=== PATIENT | male | born 1960 | race Caucasian/White ===

== ENCOUNTER 2024-01-21 18:28 | Inpatient (IN) | payer OTHER, SELFPAY ==
[2024-01-21] VITALS (8 sets, daily range): BP systolic 122–183; BP diastolic 91–121
[2024-01-21 14:43] LABS: % Basophils 0.4 % (0-2); % Eosinophils 0.6 % (0-6); % Immature Granulocytes 0.6 % (0-0.5); % Lymphocytes 6.9 % (20.5-51.1); % Monocytes 16.4 % (1.7-9.3); % Neutrophils 75.1 % (42.2-75.2); Absolute Lymphocytes 0.5 10^3/uL (1.2-3.4); Absolute Monocytes 1.1 10^3/uL (0.1-0.6); Hematocrit 27.7 % (39.0-52.0); Hemoglobin 11.1 g/dL (13.0-18.0); Mean Corp Hgb Conc. 40.1 g/dL (33.0-37.0); Mean Corpuscular Hgb 33.8 pg (27.0-31.0); Mean Corpuscular Volume 84.5 fL (80.0-94.0); Mean Platelet Volume 8.7 fL (7.4-10.4); Nucleated Red Blood Cells % 0 % (-); Platelet Count 129 10^3/uL (130-400); Red Blood Cell Count 3.28 10^6/uL (4.70-6.10); Red Cell Dist. Width 11.8 % (11.5-14.5); White Blood Cell Count 6.7 10^3/uL (4.8-10.8)
[2024-01-21 14:57] LABS: ALT (SGPT) 12 U/L (0-50); AST (SGOT) 18 U/L (17-59); Albumin 4.1 g/dl (3.5-5.0); Alkaline Phosphatase 55 U/L (38-126); Blood Urea Nitrogen 48 mg/dl (9-20); Calcium 8.7 mg/dl (8.4-10.2); Carbon Dioxide 23 mmol/L (22-30); Chloride 79 mmol/L (98-107); Glucose 233 mg/dl (70-99); Potassium 5.1 mmol/L (3.5-5.1); Sodium 113 mmol/L (135-145); Total Bilirubin 2.4 mg/dl (0.2-1.3); Total Protein 6.4 g/dl (6.3-8.2)
[2024-01-21 15:05] LABS: Troponin I < 0.012 ng/ml
--- NOTE | 2024-01-21 15:45 | ED.GENMED ---
History of Present Illness
<Tommy Gonzalez PA-C - Last Filed: 01/21/24 17:19>
General
Chief Complaint: Abnormal Lab Value
Source: patient
Exam Limitations: none
Time Seen by Provider: 01/21/24 15:20
Travel History
Have you had any contact with someone who has COVID-19?: Unable to Answer
Do you have any symptoms of coronavirus? Fever > 100 degrees, chills, cough, shortness of breath, sore throat, loss of taste or smell, muscle aches, or headache?: Unable to Answer
History of Present Illness
History of Present Illness:
63-year-old male presents with generalized fatigue and mild chest pain. He was advised to come here by his transplant team after noting outpatient labs to have a low sodium. He states they have been following his sodium has been low recently. He
denies significant headache. He states he was feeling better postoperatively and was doing well posttransplant. He denies leg swelling. He is an insulin-dependent diabetic. No other complaints at this time
Past History
<Tommy Gonzalez PA-C - Last Filed: 01/21/24 17:19>
Past History
ED Past Medical History: HTN, Hypercholesterolemia and NIDDM (Diet-controlled)
ED Past Surgical History: None
Social History
Tobacco: Non-smoker
Alcohol: Former
Drug: None
Living: with family
Employment: Employed
Family History
Family History: Other (Noncontributory)
Phy Exam
<Tommy Gonzalez PA-C - Last Filed: 01/21/24 17:19>
Physical Exam
Physical Exam:
General: Overall well-appearing male no acute respiratory distress
HEENT: Normocephalic atraumatic neck is supple
Heart: Regular rate and rhythm no murmurs
Lungs: Clear no wheeze or rales
Abdomen: Soft nontender nondistended no guarding or rebound normal bowel sounds
Extremities: No cyanosis or edema
Skin: Warm no rash
Course
<Tommy Gonzalez PA-C - Last Filed: 01/21/24 17:19>
Orders/Labs/Results
Orders:
Orders
01/21/24 13:56
Electrocardiogram (*1) Urgent
Reason for Study: Chest Pain
EKG- Treatment ONCE
01/21/24 14:09
Complete Blood Count/With Diff Urgent
Comprehensive Metabolic Panel Urgent
Serum Osmolality Urgent
Comment: SERUM OSMOLALITY ADDED ON BY FLOOR 3:40PM 01-21-24
Troponin I Urgent
01/21/24 15:41
Add On- LAB Urgent
Tests Added?: serum osmolality
Osmolality, Random Urine Urgent
Date Specimen was Collected: 01/21/24
Time Specimen was Collected: 16:09
Urinalysis Reflex To Culture Urgent
Date Specimen was Collected: 01/21/24
Time Specimen was Collected: 16:09
Urine Sodium Urgent
Date Specimen was Collected: 01/21/24
Time Specimen was Collected: 16:09
01/21/24 16:15
3% Sodium Chloride 100 ml [Sodium Chloride 3%] 100 ml IV ONCE
01/21/24 17:03
3% Sodium Chloride 250 ml [Sodium Chloride 3%] 250 ml IV ONCE
01/21/24 17:05
Urinalysis Stat
01/21/24 17:06
US Renal With Bladder Routine
Comment:
Reason For Exam: TOLU
01/22/24 06:00
Tacrolimus (Prograft - FK506) [S] IN AM
Abnormal Lab Results
01/21/24
14:09
RBC 3.28 L 10^6/uL
(4.70-6.10)
Hgb 11.1 L g/dL
(13.0-18.0)
Hct 27.7 L %
(39.0-52.0)
MCH 33.8 H pg
(27.0-31.0)
MCHC 40.1 H g/dL
(33.0-37.0)
Plt Count 129 L 10^3/uL
(130-400)
Absolute Lymphs (auto) 0.5 L 10^3/uL
(1.2-3.4)
Absolute Monos (auto) 1.1 H 10^3/uL
(0.1-0.6)
Immature Gran % 0.6 H %
(0-0.5)
Lymphocytes % 6.9 L %
(20.5-51.1)
Monocytes % 16.4 H %
(1.7-9.3)
Sodium 113 L* mmol/L
(135-145)
Chloride 79 L mmol/L
(98-107)
BUN 48 H mg/dl
(9-20)
Creatinine 1.7 H mg/dL
(0.7-1.3)
Glucose 233 H mg/dl
(70-99)
Total Bilirubin 2.4 H mg/dl
(0.2-1.3)
01/21/24 14:09
01/21/24 14:09
Vital Signs
Initial and Last Documented VS:
Initial Vital Signs
Temp Pulse Resp BP Pulse Ox
98.2 F 104 20 122/96 100
01/21/24 13:52 01/21/24 13:52 01/21/24 13:52 01/21/24 13:52 01/21/24 13:52
Last Documented Vital Signs
Temp Pulse Resp BP Pulse Ox
98.2 F 86 15 172/92 100
01/21/24 13:52 01/21/24 16:45 01/21/24 16:45 01/21/24 15:23 01/21/24 15:45
<Sy Tejada MD - Last Filed: 01/21/24 16:19>
Orders/Labs/Results
Orders:
Orders
01/21/24 13:56
Electrocardiogram (*1) Urgent
Reason for Study: Chest Pain
EKG- Treatment ONCE
01/21/24 14:09
Complete Blood Count/With Diff Urgent
Comprehensive Metabolic Panel Urgent
Serum Osmolality Urgent
Comment: SERUM OSMOLALITY ADDED ON BY FLOOR 3:40PM 01-21-24
Troponin I Urgent
01/21/24 15:41
Add On- LAB Urgent
Tests Added?: serum osmolality
Osmolality, Random Urine Urgent
Date Specimen was Collected: 01/21/24
Time Specimen was Collected: 16:09
Urinalysis Reflex To Culture Urgent
Date Specimen was Collected: 01/21/24
Time Specimen was Collected: 16:09
Urine Sodium Urgent
Date Specimen was Collected: 01/21/24
Time Specimen was Collected: 16:09
01/21/24 16:15
3% Sodium Chloride 100 ml [Sodium Chloride 3%] 100 ml IV ONCE
01/21/24 17:03
3% Sodium Chloride 250 ml [Sodium Chloride 3%] 250 ml IV ONCE
01/21/24 17:05
Urinalysis Stat
01/21/24 17:06
US Renal With Bladder Routine
Comment:
Reason For Exam: TOLU
01/22/24 06:00
Tacrolimus (Prograft - FK506) [S] IN AM
Abnormal Lab Results
01/21/24
14:09
RBC 3.28 L 10^6/uL
(4.70-6.10)
Hgb 11.1 L g/dL
(13.0-18.0)
Hct 27.7 L %
(39.0-52.0)
MCH 33.8 H pg
(27.0-31.0)
MCHC 40.1 H g/dL
(33.0-37.0)
Plt Count 129 L 10^3/uL
(130-400)
Absolute Lymphs (auto) 0.5 L 10^3/uL
(1.2-3.4)
Absolute Monos (auto) 1.1 H 10^3/uL
(0.1-0.6)
Immature Gran % 0.6 H %
(0-0.5)
Lymphocytes % 6.9 L %
(20.5-51.1)
Monocytes % 16.4 H %
(1.7-9.3)
Sodium 113 L* mmol/L
(135-145)
Chloride 79 L mmol/L
(98-107)
BUN 48 H mg/dl
(9-20)
Creatinine 1.7 H mg/dL
(0.7-1.3)
Glucose 233 H mg/dl
(70-99)
Total Bilirubin 2.4 H mg/dl
(0.2-1.3)
01/21/24 14:09
01/21/24 14:09
Vital Signs
Initial and Last Documented VS:
Initial Vital Signs
Temp Pulse Resp BP Pulse Ox
98.2 F 104 20 122/96 100
01/21/24 13:52 01/21/24 13:52 01/21/24 13:52 01/21/24 13:52 01/21/24 13:52
Last Documented Vital Signs
Temp Pulse Resp BP Pulse Ox
98.2 F 86 15 172/92 100
01/21/24 13:52 01/21/24 16:45 01/21/24 16:45 01/21/24 15:23 01/21/24 15:45
<Tommy Gonzalez PA-C - Last Filed: 01/21/24 17:19>
MDM/Problems Addressed
Differential Diagnosis Includes:
Sent in for outpatient labs demonstrating hyponatremia. Will recheck labs here. Patient also complains of chest pain radiates to the right arm occasionally. This is been ongoing. EKG through triage shows sinus rhythm with a rate of 91 and no
ischemic changes. Will check troponin. Doubt ACS.
Sodium today is 113 this is new for us on our records. Will check medications as a cause. Urine sodium serum osmolality and urine osmolality ordered.
Troponin is undetectable today.
<Tommy Gonzalez PA-C - Last Filed: 01/21/24 17:19>
*Critical Care Note
Total Time (30-74mins, 75-104mins- exclusive of procedures): Not Applicable
<Tommy Gonzalez PA-C - Last Filed: 01/21/24 17:19>
Update Note
Update Note:
Sodium 113. Discussed with emergency room attending with nephrology. Nephrology saw patient and ordered hypertonic saline at 30 mL an hour. I spoke with Catia, the nurse part of his transplant team at [facility]. She states she
spoke with the team and the transplant team is comfortable with patient staying here. Will admit to hospital for acute hyponatremia
ED Attending Note
<Tommy Gonzalez PA-C - Last Filed: 01/21/24 17:19>
-
Portions of this chart may have been created with voice recognition software.� Occasional wrong word or��sound alike� substitutions may have occurred due to the inherent limitations of voice recognition software.
<Sy Tejada MD - Last Filed: 01/21/24 16:19>
ED Attending Note
Patient seen and examined by attending physician: Yes
I performed the substantive portion of visit, reviewed & personally made and approve the management plan that is documented in note by myself or RAGHU.: Yes
ED Attending Note:
Patient has felt somewhat weak and fatigued the last few weeks. He had outpatient labs today that showed a severe low sodium and was sent to the ER for further evaluation. No other specific complaints. No confusion vomiting seizures etc. Patient
has a history of liver transplant. No recent new medications.
On exam patient is nontoxic in no distress. He is warm and dry perfusing well speaking normally fully awake and alert and grossly nonfocal. Good pulses. Regular rate and rhythm.
Sodium 113. Referred to nephrology. I initially had ordered the hypertonic bolus but they asked to hold off until they could evaluate. We are also contacting their liver fitness and wellness coordinator. Patient is trying to get his labs from last week
from his daughter. Clearly warrants admission.
Discharge Plan
Departure
Patient Disposition: Admit
Date of Disposition: 01/21/24
Time of Disposition: 17:18
Admit to: Telemetry
Presentation/result/management discussed w/ accepting MD/DO: Hospitalist
Discharge Problem:
Acute hyponatremia
Prescriptions:
No Action
aspirin 81 mg Tablet,Delayed Release (Dr/Ec)
81 mg PO DAILY
acetaminophen 500 mg Tablet
1,000 mg PO BID
clotrimazole-betamethasone 1-0.05 % cream
1 applic TOPICAL BIDPRN PRN (Reason: itching bilateral leg wounds)
Rx Instructions:
apply to bilateral leg wounds
carvedilol 25 mg tablet
25 mg PO BID
atorvastatin 20 mg tablet
20 mg PO DAILY
sulfamethoxazole-trimethoprim 400-80 mg tablet
1 tab PO DAILY
meloxicam 15 mg tablet
15 mg PO DAILY
tacrolimus 5 mg capsule
5 mg PO BID
Rx Instructions:
with three 1 mg = total 8 mg
melatonin 3 mg Tablet
3 mg PO HS PRN (Reason: insomnia)
tramadol 50 mg tablet
50 mg PO Q12
magnesium oxide 400 mg (241.3 mg magnesium) tablet
400 mg PO BID
ursodiol 300 mg capsule
300 mg PO TID
gabapentin 100 mg capsule
100 mg PO TID
tacrolimus 1 mg capsule
3 mg PO BID
Rx Instructions:
with 5 mg tab = total 8 mg
insulin lispro 100 unit/mL insulin pen
12 unit SC BID@0730,1630
insulin lispro 100 unit/mL insulin pen
14 unit SC DAILY@1130
insulin glargine [Lantus Solostar U-100 Insulin] 100 unit/mL (3 mL) insulin pen
27 unit SC HS
Referrals:
NONE,* [Active] -
Interventions
Interventions:
*Risk Screen - Suicide Last Done: 01/21/24 15:32
*General Assessment Last Done: 01/21/24 15:32
*Neglect/Abuse Screening Last Done: 01/21/24 15:32
ED- Fall Risk Assessment Last Done: 01/21/24 15:31
Discharge Date and Time
Print Language: SOLOM[place] ISLANDER
--- NOTE | 2024-01-21 16:12 | W.CON.NEPH ---
Consultation
-
Date/Time Consultation Requested: 01/21/2024 3:51PM
Date/Time Consultation Performed: 01/21/2024 4:12PM
Requesting Provider: Sy Tejada
Performing Provider: Anny Manning
Reason for Consultation: hyponatremia
Medical History
-
Chief Complaint: hyponatremia
History of Present Illness:
Mr. Foster is a 63YOM with PMH of liver txp at [place] in August 2023, diabetes, chronic L sided abdominal pain, HTN, DLD who presents to the hospital after outpatient labs showed hyponatremia to 113.
Patient states that he had his txp blood work completed this week and was asked to come to the ER because his Na was low. States that over the past few weeks, he has had significant pain and worsening neuropathy of his legs. He endorses taking
tramadol which has been helping with his pain. He also takes tylenol 2000mg BID. He is not sure if he has been taking meloxicam. states that no one has told him he has kidney dysfunction recently.
He endorses recent unsteadiness and confusion over the past few days. States that he has been eating and drinking okay but not as much appetite. Has not gained as much weight as he would like. States that he drinks about 2 bottles of water/day.
Denies nausea, vomitting or diarrhea. In fact, he states that he feels a bit constipated. Denies swelling or SOB.
Reviewing his Na trends, it appears he has always had some level of hyponatremia with Na ranging in the 130s.
Past Medical History
liver cancer s/p txp
HTN
DLD
DM
Past Surgical History: Other (liver txp in 2023)
Social History
Tobacco: Former Smoker (quit 20 years ago)
Alcohol: None
Drug: None
Living: Alone
Family History
Family History: Not Pertinent
Allergies / Home Medications
Allergy/AdvReac Type Severity Reaction Status Date / Time
No Known Allergies Allergy Verified 01/21/24 13:52
�Medication �Instructions �Recorded �Confirmed �Type
acetaminophen 500 mg tablet 1,000 mg PO BID Pain 02/09/23 01/21/24 History
aspirin 81 mg tablet,delayed 81 mg PO DAILY Blood Clot 02/09/23 01/21/24 History
release Prevention/Tx
clotrimazole-betamethasone 1 1 applic topical BIDPRN PRN 02/09/23 01/21/24 History
%-0.05 % topical cream itching bilateral leg wounds
atorvastatin 20 mg tablet 20 mg PO DAILY High Cholesterol 01/21/24 01/21/24 History
carvedilol 25 mg tablet 25 mg PO BID Blood Pressure 01/21/24 01/21/24 History
gabapentin 100 mg capsule 100 mg PO TID Pain 01/21/24 01/21/24 History
insulin glargine 100 unit/mL (3 27 unit SC HS Diabetes 01/21/24 01/21/24 History
mL) subcutaneous pen (Lantus
Solostar U-100 Insulin)
insulin lispro 100 unit/mL 12 unit SC BID@0730,1630 Diabetes 01/21/24 01/21/24 History
subcutaneous pen
insulin lispro 100 unit/mL 14 unit SC DAILY@1130 Diabetes 01/21/24 01/21/24 History
subcutaneous pen
magnesium oxide 400 mg (241.3 mg 400 mg PO BID Electrolyte Repletion 01/21/24 01/21/24 History
magnesium) tablet
melatonin 3 mg tablet 3 mg PO HS PRN insomnia 01/21/24 01/21/24 History
meloxicam 15 mg tablet 15 mg PO DAILY Pain 01/21/24 01/21/24 History
sulfamethoxazole 400 1 tab PO DAILY infection prevention 01/21/24 01/21/24 History
mg-trimethoprim 80 mg tablet
tacrolimus 1 mg capsule, 3 mg PO BID liver transplant 01/21/24 01/21/24 History
immediate-release
tacrolimus 5 mg capsule, 5 mg PO BID liver transplant 01/21/24 01/21/24 History
immediate-release
tramadol 50 mg tablet 50 mg PO Q12 Pain 01/21/24 01/21/24 History
ursodiol 300 mg capsule 300 mg PO TID gallbladder issue 01/21/24 01/21/24 History
Review of Systems
-
History Source: Patient
All other systems: Negative unless noted
Constitutional: Fatigue
Cardiac: Chest Pain (some discomfort in the chest)
Abdomen/GI: Constipated
: Dysuria (intermittent)
Musculoskeletal: Other (leg pain bilaterally)
Neurological: Dizzy and Weakness
Physical Exam
Vital Signs
Vital Signs
Temp Pulse Resp BP Pulse Ox
98.2 F 91 16 172/92 100
01/21/24 13:52 01/21/24 15:30 01/21/24 15:30 01/21/24 15:23 01/21/24 13:52
Lab Results
WBC 6.7 10^3/uL (4.8-10.8) 01/21/24 14:09
RBC 3.28 10^6/uL (4.70-6.10) L 01/21/24 14:09
Hgb 11.1 g/dL (13.0-18.0) L 01/21/24 14:09
Hct 27.7 % (39.0-52.0) L 01/21/24 14:09
Plt Count 129 10^3/uL (130-400) L 01/21/24 14:09
Sodium 113 mmol/L (135-145) L* 01/21/24 14:09
Potassium 5.1 mmol/L (3.5-5.1) 01/21/24 14:09
Chloride 79 mmol/L (98-107) L 01/21/24 14:09
Carbon Dioxide 23 mmol/L (22-30) 01/21/24 14:09
BUN 48 mg/dl (9-20) H 01/21/24 14:09
Creatinine 1.7 mg/dL (0.7-1.3) H 01/21/24 14:09
eGFR 45.30 01/21/24 14:09
Glucose 233 mg/dl (70-99) H 01/21/24 14:09
Calcium 8.7 mg/dl (8.4-10.2) 01/21/24 14:09
Albumin 4.1 g/dl (3.5-5.0) 01/21/24 14:09
Physical Exam
General: AOx3, No Distress and Nontoxic
HEENT: PERRL, EOMI, Anicteric, Conjunctivae Clear, Ear/Nose Intact, Hearing Normal, Oropharynx Clear/Moist, Dentition Intact, Facial Symmetry, Neck Supple, Trachea Midline, No JVD and No Thyromegaly
Respiratory: Clear
Cardiac: S1/S2 and Regular Rate/Rhythm
Breast: N/A
Abdomen: Soft, Nontender and Nondistended
Genito-urinary: No Costovertebral Tender
Musculoskeletal: No Clubbing, No Cyanosis and No Edema
Skin: No Rash
Neuro: Nonfocal/Grossly Intact
Hematologic/Lymphatic: No Cervical Lymphadenopathy
Psych: Mood/afflect pleasant and Insight/judgement good
Data Reviewed
-
Labs: Labs Reviewed by me, Discussed with Physician, Discussed with Nurse and Discussed with Patient
Old Records: Reviewed
Assessment/Plan
-
Assessment:
TOLU
hyponatremia
s/p liver txp in 2023
T2DM
HTN
Plan:
Hyponatremia
- Uosm, Odin pending
- plan for 30cc/hr of HTS
- goal sodium of 119-121 by tomorrow AM
- please trend Na every 6 hours
TOLU
- Cr elevated to 1.7 (baseline normal?)
- please obtain labs from [facility] as this would be very helpful to know his trends
- check UA, tacrolimus level
- kidney ultrasound ordered
- hold off on NSAIDs and other nephrotoxins
[2024-01-21 17:19] LABS: Osmolality Serum 257 mOsm/kg (275-300)
[2024-01-21] MEDS: SODIUM CHLORIDE 3% 250 IV (17:36)
[2024-01-21 18:04] LABS: Urine Albumin Negative (Neg - Trace); Urine Bilirubin Negative (Negative); Urine Character Clear (Clear); Urine Color Yellow; Urine Glucose Negative (Negative); Urine Ketone Trace (Negative); Urine Leukocyte Trace (Negative); Urine Nitrite Negative (Negative); Urine Occult Blood Negative (Negative); Urine Urobilinogen Negative (Neg - 1+)
--- NOTE | 2024-01-21 18:10 | HPS.HSE ---
Family Physician
-
Family Physician: NOT KNOW UNKNOWN - PT DOES
Chief Complaint
-
Low Sodium
History of Present Illness
Patient is a 63 y/o male past medical history of diabetes mellitus, hypertension and liver cancer s/p transplant in Aug 2023 who presents with low sodium. Patient had blood work as outpatient this week which revealed low sodium and he was sent to
the emergency department for evaluation. He reports increasing lower extremity burning sensation and unsteadiness in the legs over the last few weeks. He also reports intermittent confusion. He reports average appetite and denies excessive fluid
intake. He denies nausea. vomiting or diarrhea.
Medical History
Past Medical History
Past Medical History: Reports Cancer (Liver Cancer ), HTN, Hypercholesterolemia and IDDM
Additional Past Medical History:
Liver CA s/p Liver Transplant
Insulin-Dependent Diabetes Mellitus
Essential Hypertension
Hyperlipidemia
Past Surgical History: Reports Other
Additional Past Surgical History:
Liver Transplant - August 2023
Social History
Tobacco: Former Smoker (Quit over 20 years ago)
Alcohol: Former
Living: Alone
Family History
Family History: Not pertinent
Allergies / Home Medications
Allergies reflects when Allergies were last updated in [facility].
Home Medications with original date entered in [facility]
Allergy/Medication List:
Allergies
Allergy/AdvReac Type Severity Reaction Status Date / Time
No Known Allergies Allergy Verified 01/21/24 13:52
Home Medications
acetaminophen 500 mg tablet 1,000 mg PO BID Pain 02/09/23
aspirin 81 mg tablet,delayed release 81 mg PO DAILY Blood Clot Prevention/Tx 02/09/23
clotrimazole-betamethasone 1 %-0.05 % topical cream 1 applic topical BIDPRN PRN itching bilateral leg wounds 02/09/23
atorvastatin 20 mg tablet 20 mg PO DAILY High Cholesterol 01/21/24
carvedilol 25 mg tablet 25 mg PO BID Blood Pressure 01/21/24
gabapentin 100 mg capsule 100 mg PO TID Pain 01/21/24
insulin glargine 100 unit/mL (3 mL) subcutaneous pen (Lantus Solostar U-100 Insulin) 27 unit SC HS Diabetes 01/21/24
insulin lispro 100 unit/mL subcutaneous pen 12 unit SC BID@0730,1630 Diabetes 01/21/24
insulin lispro 100 unit/mL subcutaneous pen 14 unit SC DAILY@1130 Diabetes 01/21/24
magnesium oxide 400 mg (241.3 mg magnesium) tablet 400 mg PO BID Electrolyte Repletion 01/21/24
melatonin 3 mg tablet 3 mg PO HS PRN insomnia 01/21/24
meloxicam 15 mg tablet 15 mg PO DAILY Pain 01/21/24
sulfamethoxazole 400 mg-trimethoprim 80 mg tablet 1 tab PO DAILY infection prevention 01/21/24
tacrolimus 1 mg capsule, immediate-release 3 mg PO BID liver transplant 01/21/24
tacrolimus 5 mg capsule, immediate-release 5 mg PO BID liver transplant 01/21/24
tramadol 50 mg tablet 50 mg PO Q12 Pain 01/21/24
ursodiol 300 mg capsule 300 mg PO TID gallbladder issue 01/21/24
Review of Systems
-
A 12 point ROS was completed and negative except as noted: Yes
Constitutional: Denies Fever or Chills
Respiratory: Denies Cough or Trouble Breathing
Cardiac: Denies Chest Pain or Palpitations
Abdomen/GI: Reports See HPI
Physical Exam
Vital Signs
Vital Signs
Temp Pulse Resp BP Pulse Ox
98.2 F 87 21 183/101 100
01/21/24 13:52 01/21/24 17:15 01/21/24 17:15 01/21/24 17:00 01/21/24 17:15
Physical Exam
General: Comfortable and Conversant
HEENT: Anicteric and Moist mucous membranes
Respiratory: Clear and Non Labored Respirations
Cardiac: S1/S2 and Regular Rhythm
GI: Soft, Non Tender and Other (Midline surgical scar healing well)
Rectal: Deferred by Provider
Musculoskeletal: No Clubbing, No Cyanosis and No Edema
Skin: Warm, Dry and Other (Multiple small bilateral lower ext wounds without evidence of surrounding erythema)
Neuro: Awake, Alert, Oriented and Nonfocal/grossly intact
Psych: Calm
Laboratory Results
-
01/21/24 14:09
01/21/24 14:09
Laboratory Results
Total Bilirubin 2.4 mg/dl (0.2-1.3) H 01/21/24 14:09
AST 18 U/L (17-59) 01/21/24 14:09
ALT 12 U/L (0-50) 01/21/24 14:09
Alkaline Phosphatase 55 U/L (38-126) 01/21/24 14:09
Troponin I < 0.012 ng/ml 01/21/24 14:09
Data Reviewed
-
Lab Data: Labs Reviewed by me
Impression/Plan
-
Hyponatremia
-Appreciate Nephrology consult
-Continue 3% NaCl infusion
-Await urine sodium, and urine osmo
-Continue fluid restriction
-Hold meloxicam
-Recheck sodium later this evening and in AM
Elevated Creatinine, possible TOLU (no labs available since 2022 - attempt to obtain records from [place])
-Check renal ultrasound
-Recheck creatinine in AM
Neuropathy
-Increase gabapentin 200mg TID
Liver CA s/p Liver Transplant in August 2023
-Continue Bactrim for PCP prophylaxis
-Continue Tacrolimus - Check Level
Insulin-Dependent Diabetes Mellitus
-Continue Lantus and Novolog
-Monitor sugars and continue coverage insulin
Essential Hypertension
-Continue Coreg with hold parameters
Hyperlipidemia
-Continue atorvastatin
DVT proph: SC Heparin
Code Status: Full Code
[2024-01-21 18:11] LABS: Urine Bacteria Few (Negative); Urine Red Blood Cell 0-2 /HPF (0-2); Urine White Cell 0-2 /HPF (0-5); Urine Yeast Many (Negative)
[2024-01-21 18:13] LABS: Osmolality Urine 550 mOsm/kg (300-900)
[2024-01-21 18:20] LABS: Urine Sodium 14 mmol/L (30-90)
--- NOTE | 2024-01-21 18:54 | W.PN.UPDATE ---
Addendum entered and electronically signed by Tobi Meyer MD 01/26/24 17:39:
Correction:
Not rectal cancer, hepatic carcinoma
Original Note:
Update Note
Progress Note Update
I saw and examined the patient.
The PATIENT COORDINATOR FRONT DESK's note was reviewed and I agree with the note.
Patient is a 63-year-old male with history of rectal carcinoma s/p liver transplant, history of alcohol use disorder, hyperlipidemia, essential hypertension, insulin-dependent diabetes mellitus sent to ER for found to have new acute hyponatremia on
outpatient labs. Patient have undergone liver transplant in August at [facility] and post transplant patient is getting weekly labs. Today on outpatient lab patient was noted to having low blood sodium of 112 and was recommended to come to ER. ER
physician have discussed with transplant team at [facility] and recommended admission at for further management.
During my visit patient denies of having any major complaints of chest pain/dizziness/shortness of breath/fever/abdominal pain/nausea/vomiting/diarrhea/dysuria. Patient having some generalized weakness and having difficulty with focusing thought
processes. No reported previous history of hyponatremia.
HEENT: No pallor, cyanosis, or jaundice. Throat clear.
NECK: Supple. No JVD.
RESPIRATORY: Lungs clear to auscultation.
CVS: S1, S2 normal. RRR. No murmur, rub or gallop.
ABDOMEN: Soft, non-tender. No distension. BS+/normal.
EXTREMITIES: No peripheral cyanosis or edema.
INTERNATIONAL EDITORIAL PRODUCER: AOx3. No focal deficits.
Acute on chronic hyponatremia
-Baseline sodium close to 130. Today blood from 113
-Reason unclear from clinical history
-Urine sodium 14 with urine osmolality 550
-Suspected euvolemic hyponatremia with ADH excess
-Patient getting 3% NS infusion
-Repeat blood work in night per nephrology recommendation
-Monitor in IMU
Presumed TOLU
-Baseline creatinine unknown. Creatinine 1.7 today
-Tacrolimus level to be checked
-Also on Bactrim as past of posttransplant regimen, to be continued for now
-Meloxicam needs to be held.
S/p liver transplant in September 18
History of liver cancer
-ER Discussed with [facility] transplant center, will contact again if needed
-LFT within normal limit
-Tacrolimus level to be checked
--- NOTE | 2024-01-21 21:07 | PTCARENOTE ---
Patient admitted into room 3349. 3% Sodium chloride infusing via IV pump. Oriented to room and use of call baker. Educated of plan of care. Lower legs with scattered ulcers, pt states he has these for about a month. Tele applied showing NSR. Reports
chronic mid back, neck and feet pain; 06/04. Awaiting pharmacy to verify meds at this time. Admission complete in ER. Call baker within reach.
[2024-01-21 21:11] LABS: Glucose - Point of Care 181 mg/dl (70-99)
[2024-01-21] MEDS: NEURONTIN 200 MG PO (21:43)
[2024-01-21] MEDS: MAGNESIUM OXIDE 500 MG PO (21:43)
[2024-01-21] MEDS: ACTIGALL 300 MG PO (21:44)
[2024-01-21] MEDS: PROGRAF 3 MG PO (21:44)
[2024-01-21] MEDS: COREG 25 MG PO (21:44)
[2024-01-21] MEDS: ULTRAM 50 MG PO (21:45)
[2024-01-21] MEDS: PROGRAF 5 MG PO (21:58)
[2024-01-21] MEDS: LANTUS 0.270000000000000018 UNITS SC (23:04)
[2024-01-21] MEDS: HEPARIN 5000 UNITS SC (23:05)
[2024-01-21] MEDS: TYLENOL 650 MG PO (23:12)
[2024-01-21] MEDS: MELATONIN 3 MG PO (23:13)
[2024-01-22] VITALS (14 sets, daily range): BP systolic 106–176; BP diastolic 68–108; PULSE 88; O2SAT 99
[2024-01-22 00:19] LABS: Blood Urea Nitrogen 45 mg/dl (9-20); Calcium 8.3 mg/dl (8.4-10.2); Carbon Dioxide 24 mmol/L (22-30); Chloride 83 mmol/L (98-107); Glucose 203 mg/dl (70-99); Potassium 4.6 mmol/L (3.5-5.1); Sodium 115 mmol/L (135-145); eGFR 52.64
--- NOTE | 2024-01-22 00:43 | PTCARENOTE ---
Recheck sodium result of 115. 3% Sodium chloride still infusing. SUPERVISING NURSE Filemon made aware. No new orders.
[2024-01-22] MEDS: TYLENOL 650 MG PO ×2 (04:30→21:21)
[2024-01-22 05:19] LABS: Blood Urea Nitrogen 46 mg/dl (9-20); Calcium 8.9 mg/dl (8.4-10.2); Carbon Dioxide 22 mmol/L (22-30); Chloride 85 mmol/L (98-107); Glucose 149 mg/dl (70-99); Magnesium 1.9 mg/dl (1.6-2.3); Potassium 4.7 mmol/L (3.5-5.1); Sodium 118 mmol/L (135-145); eGFR 52.64
[2024-01-22 05:22] LABS: TSH Reflex To Free T4 1.71 uIU/ml (0.47-4.68)
[2024-01-22 07:29] LABS: Glucose - Point of Care 181 mg/dl (70-99)
[2024-01-22 07:51] LABS: Hematocrit 26.7 % (39.0-52.0); Hemoglobin 10.5 g/dL (13.0-18.0); Mean Corp Hgb Conc. 39.3 g/dL (33.0-37.0); Mean Corpuscular Hgb 34.2 pg (27.0-31.0); Mean Platelet Volume 9.1 fL (7.4-10.4); Platelet Count 110 10^3/uL (130-400); Red Blood Cell Count 3.07 10^6/uL (4.70-6.10); Red Cell Dist. Width 11.6 % (11.5-14.5); White Blood Cell Count 5.4 10^3/uL (4.8-10.8)
[2024-01-22] MEDS: NOVOLOG FLEXPEN 12 UNITS SC (07:53)
[2024-01-22] MEDS: NOVOLOG FLEXPEN-MODERATE RESISTANCE 1 UNITS SC (07:53)
[2024-01-22] MEDS: PROGRAF 5 MG PO ×2 (08:36→21:10)
[2024-01-22] MEDS: NEURONTIN 200 MG PO ×3 (08:37→21:10)
[2024-01-22] MEDS: PROGRAF 3 MG PO ×2 (08:37→21:10)
[2024-01-22] MEDS: ROXICODONE 10 MG PO ×3 (08:37→21:08)
[2024-01-22] MEDS: MAGNESIUM OXIDE 500 MG PO ×2 (08:38→21:10)
[2024-01-22] MEDS: ASPIR LOW (ENTERIC COATED) 81 MG PO (08:38)
[2024-01-22] MEDS: LIPITOR 20 MG PO (08:38)
[2024-01-22] MEDS: HEPARIN 5000 UNITS SC ×3 (08:38→23:45)
[2024-01-22] MEDS: ACTIGALL 300 MG PO ×3 (08:38→21:09)
[2024-01-22] MEDS: COREG 25 MG PO ×2 (08:40→21:10)
[2024-01-22] MEDS: BACTRIM 400 MG/80 MG 1 TABLET PO (09:33)
[2024-01-22 09:34] LABS: Glycohemoglobin (HgbA1c) 5.5 % (4.0-5.6)
--- NOTE | 2024-01-22 09:44 | W.PN.NEPH.PH ---
Today's Communication / Plan
-
3%
Assessment/Plan
-
Assessment:
TOLU
hyponatremia
s/p liver txp in 2023
T2DM
HTN
Plan:
follow BMP
3% again today
await FK level
renal US was ok
no NSAIDS
-
-
Date of Service: January 22, 2024
CC / HPI / ROS
-
Chief Complaint:
hyponatremia
TOLU
History of Present Illness:
Na up to 118 with 3%
BP stable
TOLU/Cr down to 1.5
Review of Systems:
no CP/SOB
Labs
-
Labs:
WBC 5.4 10^3/uL (4.8-10.8) 01/22/24 04:13
RBC 3.07 10^6/uL (4.70-6.10) L 01/22/24 04:13
Hgb 10.5 g/dL (13.0-18.0) L 01/22/24 04:13
Hct 26.7 % (39.0-52.0) L 01/22/24 04:13
Plt Count 110 10^3/uL (130-400) L 01/22/24 04:13
Sodium 118 mmol/L (135-145) L* 01/22/24 04:13
Potassium 4.7 mmol/L (3.5-5.1) 01/22/24 04:13
Chloride 85 mmol/L (98-107) L 01/22/24 04:13
Carbon Dioxide 22 mmol/L (22-30) 01/22/24 04:13
BUN 46 mg/dl (9-20) H 01/22/24 04:13
Creatinine 1.5 mg/dL (0.7-1.3) H 01/22/24 04:13
eGFR 52.64 01/22/24 04:13
Glucose 149 mg/dl (70-99) H 01/22/24 04:13
Calcium 8.9 mg/dl (8.4-10.2) 01/22/24 04:13
Albumin 4.1 g/dl (3.5-5.0) 01/21/24 14:09
Physical Exam
-
Vital Signs:
Vital Signs
Temp Pulse Resp BP Pulse Ox
97.4 F 91 16 136/88 99
01/22/24 07:35 01/22/24 08:40 01/22/24 06:30 01/22/24 08:40 01/22/24 06:30
Cardiovascular:: Regular rate and rhythm
Respiratory:: Bilateral: Coarse
Lung Excursion:: Normal
Abdomen:: Nontender and Soft
Bowel Sounds:: Normal
Extremity Edema:: None: Bilateral:
[2024-01-22] MEDS: SODIUM CHLORIDE 3% 250 IV (10:29)
--- NOTE | 2024-01-22 10:42 | WOUNDNOTE ---
LLE (ANTERIOR LATERAL)
--- NOTE | 2024-01-22 10:43 | WOUNDNOTE ---
RLE (ANTERIOR LATERAL)
--- NOTE | 2024-01-22 10:43 | WOUNDNOTE ---
[facility] RN note: Patient admitted with hyponatremia. Patient lives at home.
See H&P for complete history.
PMH: Liver cancer, s/p liver transplant 08/2023, DM, former smoker.
Wound Location and type/assessment: Patient admitted with: multiple dermal ulcers le's and L dorsal foot d/t patient scratching he states is r/t his neuropathy. Wounds pink and scabbed with small serous drainage. Minimal local erythema. +Pedal
pulses heard via portable Doppler. Toes warm. No LE edema.
Appetite: good for breakfast.
Pressure redistribution devices in place: Centrella Cumulux air bed. He is mobile.
Plan: Le and L foot dressings changed. Instructed patient patient local care.
Will confirm orders with hospitalist and discussed with DEVAN Pires.
Care plan to be updated and will follow as needed.
Note to case management requested for discharge: VN if goes home when discharged if qualifies and agrees.
Recommend follow up at wound care center upon discharge.
--- NOTE | 2024-01-22 10:56 | WOUNDNOTE ---
[facility] RN note: Patient admitted with hyponatremia. Patient lives at home alone.
See H&P for complete history.
PMH: Liver cancer, s/p liver transplant 08/2023, DM, former smoker, HTN.
Wound Location and type/assessment: Patient admitted with: multiple dermal ulcers le's and L dorsal foot d/t patient scratching he states is r/t his neuropathy. Wounds pink and scabbed with small serous drainage. Minimal local erythema. +Pedal
pulses heard via portable Doppler. Toes warm. No LE edema.
Appetite: good for breakfast.
Pressure redistribution devices in place: Call Britannia air bed. Air chair cushion. He is mobile however unsteady.
Plan: Le and L foot dressings changed with help from [facility] RN student Goldie. Instructed patient patient local care and hand hygiene with wound care. Instructed patient pressure injury prevention measures. Suggested he request VN if goes home when
discharged.
Will confirm orders with hospitalist and discussed with DEVAN Pires.
Care plan to be updated and will follow as needed.
Note to case management requested for discharge: VN if goes home when discharged if qualifies and agrees.
Recommend follow up at wound care center upon discharge.
--- NOTE | 2024-01-22 11:03 | PTCARENOTE ---
Rec'd pt this AM. RN found pt sitting on couch by window with all monitors removed. Pt is unsteady on feet and with ambulation. Pt was assisted back to bedside chair, all monitors replaced. Pt educated on fall risk and current limitations with his
condition. He verbalized that he would use call baker in the future for assistance. 30 min later pt found in bed, he had ambulated on his own from chair to bed. RN educated pt again and placed bed alarm on. Pt aware. Currently in bedside chair with
chair alarm in place. Pt walked with PT and complained of feeling dizzy. He is also very tremulous.
--- NOTE | 2024-01-22 12:38 | PTCARENOTE ---
Assisted pt back to bed, updated daughter via telephone. 3% NS infusing. reports improved pain control.
[2024-01-22] MEDS: NOVOLOG FLEXPEN-MODERATE RESISTANCE SC ×2 (13:08→17:40)
[2024-01-22 13:18] LABS: Glucose - Point of Care 144 mg/dl (70-99)
--- NOTE | 2024-01-22 13:52 | W.PN.HOSP.TC ---
Today's Communication/Plan
-
repeat 3% NS
increase pain medication
f/u na level
obtain labs from [facility]
Assessment / Plan
Assessment / Plan
Acute on chronic hyponatremia
-Baseline sodium close to 130. ER sodium of 113
-Reason unclear from clinical history
-Urine sodium 14 with urine osmolality 550
-Suspected euvolemic hyponatremia with ADH excess
-Patient getting 3% NS infusion yesterday and sodium up to 118 today
-Nephrology followed up and patient getting a repeat 3% NS infusion today
Presumed TOLU
-Baseline creatinine unknown. Creatinine 1.7 today
-Tacrolimus level to be checked
-Also on Bactrim as past of posttransplant regimen, to be continued for now
-Meloxicam needs to be held.
S/p liver transplant in September 18
History of liver cancer
-ER Discussed with [facility] transplant center, will contact again if needed
-LFT within normal limit
-Tacrolimus level to be checked
Peripheral neuropathy
-Suspected diabetes versus tacrolimus use related
-Increase gabapentin 200mg TID
Insulin-Dependent Diabetes Mellitus
-Continue Lantus and Novolog
-Monitor sugars and continue coverage insulin
Essential Hypertension
-Continue Coreg with hold parameters
Hyperlipidemia
-Continue atorvastatin
DVT proph: SC Heparin
Code Status: Full Code
Patient reported access to [facility] chart although does not remember log in credentials. Official records request pending from [facility],.
Anticipated Discharge: > 48 hours
Subjective/Interval History
-
Date of Service: January 22, 2024
No acute issues overnight
Continues to feel dizzy
Denies nausea or vomiting
Objective Data
-
Labs:
Laboratory Results
01/22/24 01/22/24
04:13 15:00
WBC 5.4
Hgb 10.5 L
Hct 26.7 L
Plt Count 110 L
Sodium 118 L* Pending
Potassium 4.7 Pending
Chloride 85 L Pending
Carbon Dioxide 22 Pending
BUN 46 H Pending
Creatinine 1.5 H Pending
Glucose 149 H Pending
Calcium 8.9 Pending
Vital Signs:
Vital Signs
Temp Pulse Resp BP Pulse Ox
97.9 F 83 16 110/68 98
01/22/24 11:19 01/22/24 12:00 01/22/24 12:00 01/22/24 12:00 01/22/24 12:00
I&O
01/21/24 01/22/24 01/23/24
06:59 06:59 06:59
Intake Total 480 / 480
Balance 480 / 480
Review of Systems
-
Respiratory: Reports No Symptoms
Cardiac: Reports No Symptoms
Abdomen/GI: Reports No Symptoms
Physical Exam
-
General: Negative Cachectic
HEENT: Negative Oxygen
Respiratory: Clear to Auscultation and Non Labored Respirations; Negative Accessory Resp Muscle Use
Cardiac: Regular Rhythm and S1/S2
GI: Soft, Nontender, Nondistended and Normal Bowel Sounds
Skin: Warm and Dry
Neuro: Awake, Alert, Oriented, AO x 3 and Nonfocal/Grossly Intact
Psych: Calm and Intact Judgement/Insight
--- NOTE | 2024-01-22 14:12 | PTCARENOTE ---
Pt again attempted to get OOB without assistance. Bed alarm in place. RN assisted pt to bathroom and back to bed safely.
[2024-01-22] MEDS: NOVOLOG FLEXPEN 14 UNITS SC (14:28)
[2024-01-22 16:07] LABS: Blood Urea Nitrogen 45 mg/dl (9-20); Calcium 8.9 mg/dl (8.4-10.2); Carbon Dioxide 22 mmol/L (22-30); Chloride 89 mmol/L (98-107); Estimated Creatinine Clearance 59 ml/min; Glucose 132 mg/dl (70-99); Sodium 120 mmol/L (135-145); eGFR 57.18
[2024-01-22] MEDS: MIRALAX 17 GRAMS PO (16:27)
--- NOTE | 2024-01-22 16:36 | CM ---
Patient with Hx liver transplant, IDDM with Dx hyponatremia, TOLU. Seen by wound care nurse; multiple dermal ulcers LE's and L dorsal foot. PT recommends home PT vs outpatient. OT recommends outpatient therapy.
Spoke with patient (Juan) who resides alone in a one story house with 2 TERRA.
Pt reports he is independent with mobility and ADLs.
He has been managing his own wound care at home and wears sock & slipper on left foot.
DME - home made SPC, [employer] Glucose Monitor
VN - prior [facility]
Rehab- prior [facility]
PCP - Sy Lu
[facility] [place]
Offered VN for SN for wound care and PT/OT- patient agrees to VN and chooses VN.
Referral to [facility]; CM will need to follow up tomorrow and see if patient is accepted.
[facility]
--- NOTE | 2024-01-22 17:00 | VNURNOTE ---
[facility] referral completed in [facility] after review of chart, pending acceptance of insurance.
[2024-01-22 17:40] LABS: Glucose - Point of Care 81 mg/dl (70-99)
[2024-01-22] MEDS: NOVOLOG FLEXPEN SC (17:40)
--- NOTE | 2024-01-22 17:40 | PTCARENOTE ---
Pt reported that his sugar on his CGM 62, felt symptomatic. Blood sugar on Accucheck 81. Pt did not want any insulin prior to dinner
[2024-01-22] MEDS: MELATONIN 3 MG PO (21:08)
[2024-01-22 21:13] LABS: Glucose - Point of Care 170 mg/dl (70-99)
[2024-01-22] MEDS: LANTUS 0.270000000000000018 UNITS SC (21:16)
[2024-01-23] VITALS (7 sets, daily range): BP systolic 99–163; BP diastolic 55–92; BMI 22.8
[2024-01-23] MEDS: ROXICODONE 10 MG PO ×4 (01:42→16:35)
[2024-01-23] MEDS: TYLENOL 650 MG PO ×2 (01:42→17:45)
[2024-01-23 05:31] LABS: Blood Urea Nitrogen 40 mg/dl (9-20); Calcium 8.7 mg/dl (8.4-10.2); Carbon Dioxide 26 mmol/L (22-30); Chloride 90 mmol/L (98-107); Estimated Creatinine Clearance 64 ml/min; Glucose 140 mg/dl (70-99); Potassium 5.2 mmol/L (3.5-5.1); Sodium 122 mmol/L (135-145); eGFR > 60.00
--- NOTE | 2024-01-23 06:28 | PTCARENOTE ---
Patient picking at leg dressings, removed all dressings. Pt stated 'they were itching'. Patient lacks insight on overall situation. Pt attempts to get OOB without pressing the call baker for assistance. Educated multiple times on fall safety, pt
verbalized understanding but needs reinforcement. Gait is still unsteady, tremors present. Sodium has been improving slowly. Pain managed with PRN Tylenol and Oxycodone 10mg; continues to be painful mostly to his back. Repositioning helps with this.
Bed alarm set for safety. Call baker and tray table left within reach.
[2024-01-23] MEDS: NOVOLOG FLEXPEN 12 UNITS SC ×2 (07:13→17:42)
[2024-01-23] MEDS: NOVOLOG FLEXPEN-MODERATE RESISTANCE 13 UNITS SC (07:13)
[2024-01-23 07:28] LABS: Glucose - Point of Care 162 mg/dl (70-99)
[2024-01-23] MEDS: MAGNESIUM OXIDE 500 MG PO ×2 (08:29→20:53)
[2024-01-23] MEDS: ASPIR LOW (ENTERIC COATED) 81 MG PO (08:29)
[2024-01-23] MEDS: PROGRAF 3 MG PO ×2 (08:29→20:53)
[2024-01-23] MEDS: BACTRIM 400 MG/80 MG 1 TABLET PO (08:30)
[2024-01-23] MEDS: COREG 25 MG PO ×2 (08:31→21:02)
[2024-01-23] MEDS: ACTIGALL 300 MG PO ×3 (08:31→21:02)
[2024-01-23] MEDS: PROGRAF 5 MG PO ×2 (08:31→20:53)
[2024-01-23] MEDS: NEURONTIN 200 MG PO ×3 (08:32→21:02)
[2024-01-23] MEDS: LIPITOR 20 MG PO (08:32)
[2024-01-23] MEDS: HEPARIN 5000 UNITS SC ×2 (08:37→15:52)
--- NOTE | 2024-01-23 09:12 | W.PN.NEPH.PH ---
Today's Communication / Plan
-
3% with lasix
Assessment/Plan
-
Assessment:
TOLU
hyponatremia
s/p liver txp in 2023
T2DM
HTN
Plan:
follow BMP
3% again today
lasix today too
await FK level
-
-
Date of Service: January 23, 2024
CC / HPI / ROS
-
Chief Complaint:
hyponatremia
TOLU
History of Present Illness:
Na up to 122 with 3%
BP stable
TOLU/Cr down to 1.3
K up to 5.2
Review of Systems:
no CP/SOB
Labs
-
Labs:
WBC 5.4 10^3/uL (4.8-10.8) 01/22/24 04:13
RBC 3.07 10^6/uL (4.70-6.10) L 01/22/24 04:13
Hgb 10.5 g/dL (13.0-18.0) L 01/22/24 04:13
Hct 26.7 % (39.0-52.0) L 01/22/24 04:13
Plt Count 110 10^3/uL (130-400) L 01/22/24 04:13
eGFR > 60.00 01/23/24 04:34
Albumin 4.1 g/dl (3.5-5.0) 01/21/24 14:09
Physical Exam
-
Vital Signs:
Vital Signs
Temp Pulse Resp BP Pulse Ox
97.7 F 87 15 135/69 98
01/23/24 07:36 01/23/24 08:31 01/23/24 06:00 01/23/24 08:31 01/23/24 04:30
Cardiovascular:: Regular rate and rhythm
Respiratory:: Bilateral: Coarse
Lung Excursion:: Normal
Abdomen:: Nontender and Soft
Bowel Sounds:: Normal
Extremity Edema:: None: Bilateral:
[2024-01-23] MEDS: LASIX 20 MG IV (09:56)
[2024-01-23] MEDS: SODIUM CHLORIDE 3% 250 IV (09:56)
--- NOTE | 2024-01-23 10:33 | PTCARENOTE ---
Pt AAOx3 , showered and down grade to medsurg. 3% sodium running as ordered .Pt desiws he will be moved as soon as there is a bed
[2024-01-23] MEDS: NOVOLOG FLEXPEN-MODERATE RESISTANCE SC (11:56)
[2024-01-23] MEDS: NOVOLOG FLEXPEN 14 UNITS SC (11:57)
[2024-01-23 12:07] LABS: Glucose - Point of Care 117 mg/dl (70-99)
--- NOTE | 2024-01-23 14:06 | PTCARENOTE ---
wonwd care done on pt BLE as ordered
--- NOTE | 2024-01-23 14:14 | PTCARENOTE ---
Report called to nurse on [id number] drawing labs and will send
--- NOTE | 2024-01-23 14:40 | W.PN.HOSP.TC ---
Today's Communication/Plan
-
transfer to med/surg
f/u sodium
Assessment / Plan
Assessment / Plan
Acute on chronic hyponatremia
-Baseline sodium close to 130. ER sodium of 113
-Reason unclear from clinical history
-Urine sodium 14 with urine osmolality 550
-Suspected euvolemic hyponatremia with ADH excess
-got 3% NS x2 bag, getting 3rd dose for AM Na of 122 today,
TOLU
-Baseline creatinine unknown. Creatinine trending down - 1.3 today.
-Tacrolimus level to be checked
-Also on Bactrim as past of posttransplant regimen, to be continued for now
-Meloxicam needs to be held.
S/p liver transplant in September 18
History of liver cancer
-ER Discussed with [facility] transplant center, will contact again if needed
-LFT within normal limit
-Tacrolimus level to be checked
Peripheral neuropathy
-Suspected diabetes versus tacrolimus use related
-Increase gabapentin 200mg TID
Insulin-Dependent Diabetes Mellitus
-Continue Lantus and Novolog
-Monitor sugars and continue coverage insulin
Essential Hypertension
-Continue Coreg with hold parameters
Hyperlipidemia
-Continue atorvastatin
DVT proph: SC Heparin
Code Status: Full Code
Anticipated Discharge: 24 - 48 hours
Subjective/Interval History
-
Date of Service: January 23, 2024
Having some dizziness
no other issues
Objective Data
-
Labs:
Laboratory Results
01/23/24 01/23/24
04:34 14:24
Sodium 122 L Pending
Potassium 5.2 H Pending
Chloride 90 L Pending
Carbon Dioxide 26 Pending
BUN 40 H Pending
Creatinine 1.3 Pending
Glucose 140 H Pending
Calcium 8.7 Pending
Vital Signs:
Vital Signs
Temp Pulse Resp BP Pulse Ox
97.6 F 87 17 139/69 98
01/23/24 11:05 01/23/24 08:31 01/23/24 08:27 01/23/24 09:56 01/23/24 04:30
I&O
01/22/24 01/23/24 01/24/24
06:59 06:59 06:59
Intake Total 480 / 480
Balance 480 / 480
Review of Systems
-
Respiratory: Reports No Symptoms
Cardiac: Reports No Symptoms
Abdomen/GI: Reports No Symptoms
Physical Exam
-
General: Negative Cachectic
HEENT: Negative Oxygen
Respiratory: Clear to Auscultation and Non Labored Respirations; Negative Accessory Resp Muscle Use
Cardiac: Regular Rhythm and S1/S2
GI: Soft, Nontender, Nondistended and Normal Bowel Sounds
Skin: Warm and Dry
Neuro: Awake, Alert, Oriented, AO x 3 and Nonfocal/Grossly Intact
Psych: Calm and Intact Judgement/Insight
[2024-01-23 14:51] LABS: Blood Urea Nitrogen 40 mg/dl (9-20); Calcium 8.6 mg/dl (8.4-10.2); Carbon Dioxide 27 mmol/L (22-30); Chloride 89 mmol/L (98-107); Estimated Creatinine Clearance 64 ml/min; Glucose 150 mg/dl (70-99); Potassium 5.1 mmol/L (3.5-5.1); Sodium 122 mmol/L (135-145); eGFR > 60.00
[2024-01-23 16:24] LABS: Glucose - Point of Care 172 mg/dl (70-99)
--- NOTE | 2024-01-23 16:34 | CM ---
Patient with Hx liver transplant, IDDM with Dx hyponatremia, TOLU. Seen by wound care nurse; multiple dermal ulcers LE's and L dorsal foot. Seen by wound care nurse. PT recommends home PT vs outpatient. OT recommends outpatient therapy.
Patient accepted by [facility] in [place] for SN/PT/OT.
Plan home with [facility].
[2024-01-23] MEDS: NOVOLOG FLEXPEN-MODERATE RESISTANCE 1 UNITS SC (17:43)
[2024-01-23] MEDS: ROXICODONE 5 MG PO (17:46)
[2024-01-23 20:01] LABS: Tacrolimus (Prograft - FK506) 10.8 ng/mL
[2024-01-23 21:31] LABS: Glucose - Point of Care 64 mg/dl (70-99)
[2024-01-23 21:51] LABS: Glucose - Point of Care 136 mg/dl (70-99)
[2024-01-23] MEDS: LANTUS 0.270000000000000018 UNITS SC (22:07)
[2024-01-24 00:10] LABS: Glucose - Point of Care 231 mg/dl (70-99)
[2024-01-24] MEDS: HEPARIN 5000 UNITS SC ×3 (00:11→16:25)
[2024-01-24 00:17] VITALS: BP 131/71
[2024-01-24] MEDS: ROXICODONE 10 MG PO ×5 (00:19→21:43)
[2024-01-24 03:34] LABS: Glucose - Point of Care 162 mg/dl (70-99)
[2024-01-24 07:00] VITALS: BP 115/64
[2024-01-24 07:15] LABS: Glucose - Point of Care 118 mg/dl (70-99)
[2024-01-24] MEDS: NOVOLOG FLEXPEN 12 UNITS SC (07:17)
[2024-01-24] MEDS: MAGNESIUM OXIDE 500 MG PO ×2 (07:51→20:40)
[2024-01-24] MEDS: NOVOLOG FLEXPEN-MODERATE RESISTANCE SC ×3 (07:51→17:35)
[2024-01-24] MEDS: PROGRAF 3 MG PO ×2 (07:51→20:40)
[2024-01-24] MEDS: LIPITOR 20 MG PO (07:52)
[2024-01-24] MEDS: COREG 25 MG PO (07:52)
[2024-01-24] MEDS: BACTRIM 400 MG/80 MG 1 TABLET PO (07:52)
[2024-01-24] MEDS: NEURONTIN 200 MG PO ×3 (07:52→20:40)
[2024-01-24] MEDS: ACTIGALL 300 MG PO ×3 (07:52→20:40)
[2024-01-24] MEDS: ASPIR LOW (ENTERIC COATED) 81 MG PO (07:53)
[2024-01-24] MEDS: PROGRAF 5 MG PO ×2 (07:53→20:40)
[2024-01-24 09:06] LABS: Blood Urea Nitrogen 44 mg/dl (9-20); Calcium 8.6 mg/dl (8.4-10.2); Carbon Dioxide 28 mmol/L (22-30); Chloride 92 mmol/L (98-107); Estimated Creatinine Clearance 52 ml/min; Glucose 97 mg/dl (70-99); Potassium 5.3 mmol/L (3.5-5.1); Sodium 125 mmol/L (135-145); eGFR 48.72
[2024-01-24 11:28] LABS: Glucose - Point of Care 62 mg/dl (70-99)
[2024-01-24 11:43] LABS: Glucose - Point of Care 99 mg/dl (70-99)
[2024-01-24] MEDS: NOVOLOG FLEXPEN SC (12:06)
[2024-01-24] MEDS: SODIUM CHLORIDE 3% 250 IV (12:10)
--- NOTE | 2024-01-24 13:33 | W.PN.NEPH.PH ---
Today's Communication / Plan
-
3%
Assessment/Plan
-
Assessment:
TOLU
hyponatremia
s/p liver txp in 2023
T2DM
HTN
Plan:
follow BMP
3% again today
hold lasix today as cr did bump back up --> i am unsure what his true baseline is. need old records
tac at 10.8, okay for now.
k elevated to 5.3, give dose of kayaxelate
-
-
Date of Service: January 24, 2024
CC / HPI / ROS
-
Chief Complaint:
hyponatremia
TOLU
History of Present Illness:
Na up to 125 with 3%
BP stable
TOLU/Cr back up to 1.6
K up to 5.3
Review of Systems:
no CP/SOB
Labs
-
Labs:
WBC 5.4 10^3/uL (4.8-10.8) 01/22/24 04:13
RBC 3.07 10^6/uL (4.70-6.10) L 01/22/24 04:13
Hgb 10.5 g/dL (13.0-18.0) L 01/22/24 04:13
Hct 26.7 % (39.0-52.0) L 01/22/24 04:13
Plt Count 110 10^3/uL (130-400) L 01/22/24 04:13
Sodium 125 mmol/L (135-145) L 01/24/24 07:39
Potassium 5.3 mmol/L (3.5-5.1) H 01/24/24 07:39
Chloride 92 mmol/L (98-107) L 01/24/24 07:39
Carbon Dioxide 28 mmol/L (22-30) 01/24/24 07:39
BUN 44 mg/dl (9-20) H 01/24/24 07:39
Creatinine 1.6 mg/dL (0.7-1.3) H 01/24/24 07:39
eGFR 48.72 01/24/24 07:39
Glucose 97 mg/dl (70-99) 01/24/24 07:39
Calcium 8.6 mg/dl (8.4-10.2) 01/24/24 07:39
Albumin 4.1 g/dl (3.5-5.0) 01/21/24 14:09
Physical Exam
-
Vital Signs:
Vital Signs
Temp Pulse Resp BP Pulse Ox
98 F 89 16 115/64 98
01/24/24 07:00 01/24/24 07:00 01/24/24 07:00 01/24/24 07:00 01/24/24 07:00
Cardiovascular:: Regular rate and rhythm
Respiratory:: Bilateral: CTA
Lung Excursion:: Normal
Abdomen:: Nontender and Soft
Bowel Sounds:: Normal
Extremity Edema:: None: Bilateral:
Yan Catheter: No
--- NOTE | 2024-01-24 13:47 | W.PN.HOSP.TC ---
Today's Communication/Plan
-
see note
Assessment / Plan
Assessment / Plan
Acute on chronic hyponatremia
-Baseline sodium close to 130. ER sodium of 113
-Reason unclear from clinical history
-Urine sodium 14 with urine osmolality 550
-Suspected euvolemic hyponatremia with ADH excess
-got 3% NS x3 bag
-Sodium of 125 today. getting repeat 3% NS today
TOLU
-Baseline creatinine unknown.
-Tacrolimus level within normal limit
-Also on Bactrim as past of post-transplant, continue
-Meloxicam needs to be held.
-Creatinine again showed a bump of 1.6 today. asked to get records from [facility]
S/p liver transplant in September 18
History of liver cancer
-ER Discussed with [facility] transplant center, will contact again if needed
-LFT within normal limit
-Tacrolimus level of 10.8. Pharmacy checked with [facility] transplant team who recommended to continue current dose.
Peripheral neuropathy
-Suspected diabetes versus tacrolimus use related
-Increase gabapentin 200mg TID
-Patient neuropathy symptoms much better. Continue higher dose of gabapentin
Insulin-Dependent Diabetes Mellitus
-Continue Lantus and Novolog
-Monitor sugars and continue coverage insulin
Essential Hypertension
-Continue Coreg with hold parameters
Hyperlipidemia
-Continue atorvastatin
DVT proph: SC Heparin
Code Status: Full Code
Anticipated Discharge: 24 - 48 hours
Subjective/Interval History
-
Date of Service: January 24, 2024
Denies of having any problems overnight
Objective Data
-
Labs:
Laboratory Results
01/24/24
07:39
Sodium 125 L
Potassium 5.3 H
Chloride 92 L
Carbon Dioxide 28
BUN 44 H
Creatinine 1.6 H
Glucose 97
Calcium 8.6
Vital Signs:
Vital Signs
Temp Pulse Resp BP Pulse Ox
98 F 89 16 115/64 98
01/24/24 07:00 01/24/24 07:00 01/24/24 07:00 01/24/24 07:00 01/24/24 07:00
I&O
01/23/24 01/24/24 01/25/24
06:59 06:59 06:59
Intake Total 720 / 720
Balance 720 / 720
Review of Systems
-
Respiratory: Reports No Symptoms
Cardiac: Reports No Symptoms
Abdomen/GI: Reports No Symptoms
Physical Exam
-
General: Negative Cachectic
HEENT: Negative Oxygen
Respiratory: Clear to Auscultation and Non Labored Respirations; Negative Accessory Resp Muscle Use
Cardiac: Regular Rhythm and S1/S2
GI: Soft, Nontender, Nondistended and Normal Bowel Sounds
Skin: Warm and Dry
Neuro: Awake, Alert, Oriented, AO x 3 and Nonfocal/Grossly Intact
Psych: Calm and Intact Judgement/Insight
--- NOTE | 2024-01-24 13:56 | CM ---
Pt has needs for PT OT and SN for wound care.
[facility] declined pt does not accept insurance.
[facility] does not accept insurance.
[facility] does not accept insurance.
SPoke with Marisol at [facility] [phone] she said they accept pts insurance.
Plan Home with [facility] fax [phone]
[2024-01-24] MEDS: ROXICODONE 5 MG PO (14:46)
[2024-01-24] MEDS: LOKELMA 5 GRAM PO (14:50)
[2024-01-24] MEDS: TYLENOL 650 MG PO (14:57)
[2024-01-24 15:00] VITALS: BP 133/73
[2024-01-24 15:25] VITALS: BP 119/71; BP 133/73; PULSE 81; O2SAT 100
[2024-01-24 17:06] LABS: Glucose - Point of Care 125 mg/dl (70-99)
[2024-01-24] MEDS: NOVOLOG FLEXPEN 9 UNITS SC (17:35)
[2024-01-24] MEDS: COREG PO (20:21)
[2024-01-24] MEDS: OCEAN, SALINE MIST 1 SPRAYS NASAL (20:40)
[2024-01-24 21:36] LABS: Glucose - Point of Care 85 mg/dl (70-99)
[2024-01-24] MEDS: LANTUS 0.200000000000000011 UNITS SC (21:43)
[2024-01-24 23:00] VITALS: BP 103/62
--- NOTE | 2024-01-24 23:54 | PTCARENOTE ---
Pt rang call baker and felt blood sugar was dropping. Pt's own monitor reading blood sugar in the 60s. AccuCheck completed, reading 82.
Provided apple juice and snack. Plan of care ongoing
[2024-01-24 23:55] LABS: Glucose - Point of Care 82 mg/dl (70-99)
[2024-01-25] MEDS: HEPARIN 5000 UNITS SC ×3 (01:07→16:34)
[2024-01-25 03:32] LABS: Glucose - Point of Care 151 mg/dl (70-99)
[2024-01-25] MEDS: ROXICODONE 10 MG PO ×4 (06:12→21:48)
[2024-01-25 07:11] LABS: Glucose - Point of Care 170 mg/dl (70-99)
[2024-01-25] MEDS: NOVOLOG FLEXPEN-MODERATE RESISTANCE 1 UNITS SC (07:17)
[2024-01-25] MEDS: NOVOLOG FLEXPEN 9 UNITS SC ×2 (07:17→16:35)
[2024-01-25] MEDS: ACTIGALL 300 MG PO ×3 (07:33→21:49)
[2024-01-25] MEDS: PROGRAF 5 MG PO ×2 (07:33→19:55)
[2024-01-25] MEDS: MAGNESIUM OXIDE 500 MG PO ×2 (07:33→19:55)
[2024-01-25] MEDS: PROGRAF 3 MG PO ×2 (07:33→19:55)
[2024-01-25] MEDS: COREG 25 MG PO ×2 (07:34→19:55)
[2024-01-25] MEDS: LIPITOR 20 MG PO (07:34)
[2024-01-25] MEDS: TYLENOL 650 MG PO ×2 (07:34→16:34)
[2024-01-25] MEDS: NEURONTIN 200 MG PO ×3 (07:35→21:48)
[2024-01-25] MEDS: ASPIR LOW (ENTERIC COATED) 81 MG PO (07:35)
[2024-01-25] MEDS: BACTRIM 400 MG/80 MG 1 TABLET PO (07:35)
[2024-01-25 08:07] VITALS: BP 160/90
[2024-01-25 09:15] LABS: Blood Urea Nitrogen 39 mg/dl (9-20); Calcium 8.7 mg/dl (8.4-10.2); Carbon Dioxide 27 mmol/L (22-30); Chloride 93 mmol/L (98-107); Estimated Creatinine Clearance 52 ml/min; Glucose 108 mg/dl (70-99); Potassium 5.9 mmol/L (3.5-5.1); Sodium 126 mmol/L (135-145); eGFR 48.72
--- NOTE | 2024-01-25 10:52 | W.PN.HOSP.TC ---
Today's Communication/Plan
-
see note
Assessment / Plan
Assessment / Plan
Acute on chronic hyponatremia
-Baseline sodium close to 130. ER sodium of 113
-Reason unclear from clinical history
-Urine sodium 14 with urine osmolality 550
-Suspected euvolemic hyponatremia with ADH excess
-got 3% NS x4 bag
-Na 126 today, getting 3%NS 5th bag today
TOLU
-Baseline creatinine unknown.
-Tacrolimus level within normal limit
-Also on Bactrim as past of post-transplant, continue
-Meloxicam needs to be held.
-Creatinine remains elevated.
-[facility] labs received although from 01/20 and not helpful.
Hyperkalemia
-from tacrolimus/bactrim and renal dysfunction related
-continue low K diet
-started on oral lokelma
-Getting one dose of IV lasix 40mg
-repeat BMP in evening.
S/p liver transplant in September 18
History of liver cancer
-ER Discussed with [facility] transplant center, will contact again if needed
-LFT within normal limit
-Tacrolimus level of 10.8. Pharmacy checked with [facility] transplant team who recommended to continue current dose.
Peripheral neuropathy
-Suspected diabetes versus tacrolimus use related
-Increase gabapentin 200mg TID
-Patient neuropathy symptoms much better. Continue higher dose of gabapentin
Insulin-Dependent Diabetes Mellitus
-Continue Lantus and Novolog
-Monitor sugars and continue coverage insulin
Essential Hypertension
-Continue Coreg with hold parameters
Hyperlipidemia
-Continue atorvastatin
DVT proph: SC Heparin
Code Status: Full Code
Anticipated Discharge: 24 - 48 hours
Subjective/Interval History
-
Date of Service: January 25, 2024
Patient denies of having any problems overnight
Subjectively feeling better
Objective Data
-
Labs:
Laboratory Results
01/25/24
08:39
Sodium 126 L
Potassium 5.9 H
Chloride 93 L
Carbon Dioxide 27
BUN 39 H
Creatinine 1.6 H
Glucose 108 H
Calcium 8.7
Vital Signs:
Vital Signs
Temp Pulse Resp BP Pulse Ox
99.3 F 100 16 160/90 98
01/25/24 08:07 01/25/24 08:07 01/25/24 08:07 01/25/24 08:07 01/25/24 08:07
I&O
01/24/24 01/25/24 01/26/24
06:59 06:59 06:59
Intake Total 720 / 720 1380 / 1380
Balance 720 / 720 1380 / 1380
Review of Systems
-
Respiratory: Reports No Symptoms
Cardiac: Reports No Symptoms
Abdomen/GI: Reports No Symptoms
Physical Exam
-
General: Negative Cachectic
HEENT: Negative Oxygen
Respiratory: Clear to Auscultation and Non Labored Respirations; Negative Accessory Resp Muscle Use
Cardiac: Regular Rhythm and S1/S2
GI: Soft, Nontender, Nondistended and Normal Bowel Sounds
Skin: Warm and Dry
Neuro: Awake, Alert, Oriented, AO x 3 and Nonfocal/Grossly Intact
Psych: Calm and Intact Judgement/Insight
[2024-01-25 11:37] VITALS: BP 133/68
[2024-01-25] MEDS: LASIX 40 MG IV (11:38)
[2024-01-25] MEDS: SODIUM CHLORIDE 3% 250 IV (11:39)
[2024-01-25] MEDS: NOVOLOG FLEXPEN 11 UNITS SC (11:57)
[2024-01-25] MEDS: NOVOLOG FLEXPEN-MODERATE RESISTANCE SC ×2 (11:58→16:35)
[2024-01-25 11:59] LABS: Glucose - Point of Care 90 mg/dl (70-99)
--- NOTE | 2024-01-25 12:53 | W.PN.NEPH.PH ---
Today's Communication / Plan
-
- HTS, lasix, lokelma
Assessment/Plan
-
Assessment:
TOLU
hyponatremia
s/p liver txp in 2023
T2DM
HTN
Plan:
follow BMP
3% again today
lasix today (had prior bump in Cr but stable now)
tac at 10.8, okay for now.
k elevated to 5.9, acute management per primary, now on [facility] scheduled
-
-
Date of Service: January 25, 2024
CC / HPI / ROS
-
Chief Complaint:
hyponatremia
TOLU
History of Present Illness:
Na up to 126 with 3%
BP stable
TOLU/Cr back up to 1.6
K up to 5.9
Review of Systems:
no CP/SOB
Labs
-
Labs:
WBC 5.4 10^3/uL (4.8-10.8) 01/22/24 04:13
RBC 3.07 10^6/uL (4.70-6.10) L 01/22/24 04:13
Hgb 10.5 g/dL (13.0-18.0) L 01/22/24 04:13
Hct 26.7 % (39.0-52.0) L 01/22/24 04:13
Plt Count 110 10^3/uL (130-400) L 01/22/24 04:13
eGFR 48.72 01/25/24 08:39
Albumin 4.1 g/dl (3.5-5.0) 01/21/24 14:09
Physical Exam
-
Vital Signs:
Vital Signs
Temp Pulse Resp BP Pulse Ox
99.3 F 81 16 133/68 98
01/25/24 08:07 06/01/24 11:37 01/25/24 11:37 01/25/24 11:37 01/25/24 11:37
Cardiovascular:: Regular rate and rhythm
Respiratory:: Bilateral: Coarse
Lung Excursion:: Normal
Abdomen:: Nontender and Soft
Bowel Sounds:: Normal
Extremity Edema:: +1: Bilateral:
Yan Catheter: No
[2024-01-25] MEDS: LOKELMA 10 GRAM PO ×2 (13:25→17:38)
[2024-01-25] MEDS: ROXICODONE 5 MG PO (13:27)
[2024-01-25 15:44] VITALS: BP 106/66
[2024-01-25 16:06] LABS: Blood Urea Nitrogen 41 mg/dl (9-20); Calcium 9.2 mg/dl (8.4-10.2); Carbon Dioxide 29 mmol/L (22-30); Chloride 93 mmol/L (98-107); Estimated Creatinine Clearance 42 ml/min; Glucose 71 mg/dl (70-99); Potassium 5.3 mmol/L (3.5-5.1); Sodium 129 mmol/L (135-145); eGFR 37.27
[2024-01-25 16:29] LABS: Glucose - Point of Care 114 mg/dl (70-99)
[2024-01-25 21:42] LABS: Glucose - Point of Care 100 mg/dl (70-99)
[2024-01-25] MEDS: LANTUS 0.200000000000000011 UNITS SC (21:49)
[2024-01-25 23:00] VITALS: BP 115/69
[2024-01-26] MEDS: HEPARIN 5000 UNITS SC ×2 (00:59→08:42)
[2024-01-26] MEDS: ROXICODONE 10 MG PO ×2 (04:17→08:53)
[2024-01-26] MEDS: LOKELMA 10 GRAM PO (05:14)
[2024-01-26 06:34] LABS: Hematocrit 23.1 % (39.0-52.0); Hemoglobin 8.6 g/dL (13.0-18.0); Mean Corp Hgb Conc. 37.2 g/dL (33.0-37.0); Mean Corpuscular Hgb 33.1 pg (27.0-31.0); Mean Corpuscular Volume 88.8 fL (80.0-94.0); Red Cell Dist. Width 11.6 % (11.5-14.5); White Blood Cell Count 4.6 10^3/uL (4.8-10.8)
[2024-01-26 06:44] LABS: Blood Urea Nitrogen 42 mg/dl (9-20); Calcium 8.9 mg/dl (8.4-10.2); Carbon Dioxide 29 mmol/L (22-30); Chloride 94 mmol/L (98-107); Estimated Creatinine Clearance 44 ml/min; Glucose 96 mg/dl (70-99); Sodium 128 mmol/L (135-145); eGFR 39.64
[2024-01-26 07:00] VITALS: BP 96/52
[2024-01-26 07:07] LABS: Glucose - Point of Care 193 mg/dl (70-99)
[2024-01-26 08:39] LABS: Mean Platelet Volume 8.4 fL (7.4-10.4); Platelet Count 69 10^3/uL (130-400)
[2024-01-26] MEDS: BACTRIM 400 MG/80 MG 1 TABLET PO (08:42)
[2024-01-26] MEDS: ASPIR LOW (ENTERIC COATED) 81 MG PO (08:43)
[2024-01-26] MEDS: ACTIGALL 300 MG PO (08:43)
[2024-01-26] MEDS: MAGNESIUM OXIDE 500 MG PO (08:43)
[2024-01-26] MEDS: NEURONTIN 200 MG PO (08:43)
[2024-01-26] MEDS: LIPITOR 20 MG PO (08:44)
[2024-01-26] MEDS: PROGRAF 5 MG PO (08:44)
[2024-01-26] MEDS: PROGRAF 3 MG PO (08:44)
[2024-01-26] MEDS: COREG PO (08:44)
[2024-01-26] MEDS: NOVOLOG FLEXPEN-MODERATE RESISTANCE 1 UNITS SC (08:45)
[2024-01-26] MEDS: NOVOLOG FLEXPEN 9 UNITS SC (08:45)
[2024-01-26 11:43] LABS: Glucose - Point of Care 97 mg/dl (70-99)
[2024-01-26] MEDS: NOVOLOG FLEXPEN 11 UNITS SC (11:53)
[2024-01-26] MEDS: NOVOLOG FLEXPEN-MODERATE RESISTANCE SC (11:53)
--- NOTE | 2024-01-26 12:42 | W.PN.NEPH.PH ---
Today's Communication / Plan
-
- discharge
Assessment/Plan
-
Assessment:
TOLU
hyponatremia
s/p liver txp in 2023
T2DM
HTN
Plan:
patient adamant to be discharged today
Na improved to safe level 128
encouraged high protein diet
labs on saturday, will follow up with his txp clinic
should be discharged on
follow BMP
Cr stable around 1.9, will f/u with [facility] re: kidney function
-
-
Date of Service: January 26, 2024
CC / HPI / ROS
-
Chief Complaint:
hyponatremia
TOLU
History of Present Illness:
Na up to 128 with %
BP stable
TOLU/Cr back up to 1.9
K normalized to 5.0
Review of Systems:
no CP/SOB
Labs
-
Labs:
WBC 4.6 10^3/uL (4.8-10.8) L 01/26/24 05:11
RBC 2.60 10^6/uL (4.70-6.10) L 01/26/24 05:11
Hgb 8.6 g/dL (13.0-18.0) L 01/26/24 05:11
Hct 23.1 % (39.0-52.0) L 01/26/24 05:11
Plt Count 69 10^3/uL (130-400) L D 01/26/24 05:11
Sodium 128 mmol/L (135-145) L 01/26/24 05:12
Potassium 5.0 mmol/L (3.5-5.1) 01/26/24 05:12
Chloride 94 mmol/L (98-107) L 01/26/24 05:12
Carbon Dioxide 29 mmol/L (22-30) 01/26/24 05:12
BUN 42 mg/dl (9-20) H 01/26/24 05:12
Creatinine 1.9 mg/dL (0.7-1.3) H 01/26/24 05:12
eGFR 39.64 01/26/24 05:12
Glucose 96 mg/dl (70-99) 01/26/24 05:12
Calcium 8.9 mg/dl (8.4-10.2) 01/26/24 05:12
Albumin 4.1 g/dl (3.5-5.0) 01/21/24 14:09
Physical Exam
-
Vital Signs:
Vital Signs
Temp Pulse Resp BP Pulse Ox
97.8 F 87 16 96/82 97
01/26/24 07:00 01/26/24 08:44 01/26/24 07:00 01/26/24 08:44 01/26/24 07:00
Cardiovascular:: Regular rate and rhythm
Respiratory:: Bilateral: Coarse
Lung Excursion:: Normal
Abdomen:: Nontender and Soft
Bowel Sounds:: Normal
Extremity Edema:: None: Bilateral:
Yan Catheter: No
--- NOTE | 2024-01-26 14:35 | W.PN.HOSP.TC ---
Today's Communication/Plan
-
d/c home
Assessment / Plan
Assessment / Plan
Acute on chronic hyponatremia
-Baseline sodium close to 130. ER sodium of 113
-Reason unclear from clinical history
-Urine sodium 14 with urine osmolality 550
-Suspected euvolemic hyponatremia with ADH excess
-got 3% NS x5 bag
-Na 128 today
TOLU
-Baseline creatinine unknown.
-Tacrolimus level within normal limit
-Also on Bactrim as past of post-transplant, continue
-Meloxicam needs to be held.
-Creatinine remains elevated. 1.9 today
-[facility] labs received although from 01/20 and not helpful.
Hyperkalemia - normalized
-from tacrolimus/bactrim and renal dysfunction related
-continue low K diet
-Got dose of IV lasix 40mg
-got doses of oral loklema
S/p liver transplant in September 18
History of liver cancer
-ER Discussed with [facility] transplant center, will contact again if needed
-LFT within normal limit
-Tacrolimus level of 10.8. Pharmacy checked with [facility] transplant team who recommended to continue current dose.
Peripheral neuropathy
-Suspected diabetes versus tacrolimus use related
-Increase gabapentin 200mg TID
-Patient neuropathy symptoms much better. Continue higher dose of gabapentin
Insulin-Dependent Diabetes Mellitus
-Continue Lantus and Novolog
-Monitor sugars and continue coverage insulin
Essential Hypertension
-Continue Coreg with hold parameters
Hyperlipidemia
-Continue atorvastatin
DVT proph: SC Heparin
Code Status: Full Code
Patient will be discharged home with repeat BMP on Saturday.
Patient will not to follow-up with [facility] transplant center if further lab abnormality persists
More than 30 minutes spent in discharge including
Final examination of the patient
Summarizing hospital stay
Instructions for continuing care to all relevant caregivers
Preparation of discharge records, prescriptions, and referral forms
Total time spent (in minutes): 38 mins
Anticipated Discharge: Today
Subjective/Interval History
-
Date of Service: January 26, 2024
No complaints overnight
Objective Data
-
Labs:
Laboratory Results
01/26/24 01/26/24
05:11 05:12
WBC 4.6 L
Hgb 8.6 L
Hct 23.1 L
Plt Count 69 L D
Sodium 128 L
Potassium 5.0
Chloride 94 L
Carbon Dioxide 29
BUN 42 H
Creatinine 1.9 H
Glucose 96
Calcium 8.9
Vital Signs:
Vital Signs
Temp Pulse Resp BP Pulse Ox
97.8 F 87 16 96/82 97
01/26/24 07:00 01/26/24 08:44 01/26/24 07:00 01/26/24 08:44 01/26/24 07:00
I&O
01/25/24 01/26/24 01/27/24
06:59 06:59 06:59
Intake Total 1380 / 1380 1260 / 1260
Balance 1380 / 1380 1260 / 1260
Review of Systems
-
Respiratory: Reports No Symptoms
Cardiac: Reports No Symptoms
Abdomen/GI: Reports No Symptoms
Physical Exam
-
General: Negative Cachectic
HEENT: Negative Oxygen
Respiratory: Clear to Auscultation and Non Labored Respirations; Negative Accessory Resp Muscle Use
Cardiac: Regular Rhythm and S1/S2
GI: Soft, Nontender, Nondistended and Normal Bowel Sounds
Skin: Warm and Dry
Neuro: Awake, Alert, Oriented, AO x 3 and Nonfocal/Grossly Intact
Psych: Calm and Intact Judgement/Insight
--- NOTE | 2024-01-26 17:34 | W.DCSUMMARY ---
Discharge Summary
Discharge Data
Date of Admission: 01/21/24
Date of Discharge: 01/26/24
-
Pending Results: No
Hospital Course
Discharging Physician : Dr Tobi Meyer
Disposition : Home
Primary care physician : Dr Sy Lu
Principal Discharge diagnosis :
Acute on chronic hyponatremia
Acute kidney injury
Hyperkalemia
Chronic Discharge diagnosis :
History of liver transplant September 18
History of liver cancer
Peripheral neuropathy
Insulin-dependent diabetes mellitus
Essential hypertension
Hyperlipidemia
Hospital Course :
Patient is 63 year male with above mentioned past medical history sent to ER for abnormal laboratory evaluation. Patient was noted to have significant acute hyponatremia with blood sodium of 113. Patient also had minimal renal dysfunction with
creatinine 1.7. Patient have undergone liver transplant earlier this year at [facility] with history of hepatic carcinoma. Patient had routine labs done by [facility] transplant center and was noted to having abnormal result. Patient was asked to come to
ER. Nephrology was involved in care and patient was started on hypertonic saline. Over next 5 days patient required daily hypertonic saline infusion with sodium eventually correcting to 128. Patient also had significant fluctuation in renal
function with creatinine going down to 1.3 and then again to 1.9 on day of discharge. Patient tacrolimus level was checked and was 10.8, this was related to transplant center coordinator who recommended to continue on current dose of tacrolimus.
Patient was also having minor hypokalemia which is likely combination of prophylactic Bactrim use/tacrolimus and suppressed renal function related. Patient required dose of Lasix and few doses of Lokelma to normalize potassium level. Post
improvement patient was discharged home with follow-up blood work within 48 hours. Patient will need to go to initially [facility] hospital as will require tacrolimus dose changing and monitoring for recurrence of similar issues.
Important imaging findings :
None
Procedure findings :
None
Discharge Plan
-
Patient Disposition: Home (Routine Discharge)
Discharge Diagnosis/Procedures: Hyponatremia, Hyperkalemia, TOLU
Condition: Fair
Diet: Other diet
Additional Diets: Low potassium diet
Activity: No restrictions
Driving Restrictions: As prior to admission
Bathing Restrictions: OK to Shower
Blood Work: BMP on Saturday
Activity Restrictions/Additional Instructions:
Wound Care Instructions
Bilateral LE and L dorsal foot wounds-clean with saline or soap and water, apply silicone border foam or Vaseline and non stick dressing, change daily.
Follow up at wound care center call for an appointment.

Please follow up with [facility] transplant center if have any further issues.
Referrals:
Sy Lu DO [Family Provider] - in one week
Additional Discharge Medication Instructions: STOP taking Meloxicam
Prescriptions:
New
gabapentin 100 mg Capsule
200 mg PO TID 30 Days Qty: 180 0RF
oxycodone 5 mg tablet
5 mg PO BID PRN (Reason: Mod sev pain) Qty: 10 0RF
Continued
aspirin 81 mg Tablet,Delayed Release (Dr/Ec)
81 mg PO DAILY
acetaminophen 500 mg Tablet
1,000 mg PO BID
clotrimazole-betamethasone 1-0.05 % cream
1 applic TOPICAL BIDPRN PRN (Reason: itching bilateral leg wounds)
Rx Instructions:
apply to bilateral leg wounds
carvedilol 25 mg tablet
25 mg PO BID
atorvastatin 20 mg tablet
20 mg PO DAILY
sulfamethoxazole-trimethoprim 400-80 mg tablet
1 tab PO DAILY
tacrolimus 5 mg capsule
5 mg PO BID
Rx Instructions:
with three 1 mg = total 8 mg
melatonin 3 mg Tablet
3 mg PO HS PRN (Reason: insomnia)
tramadol 50 mg tablet
50 mg PO Q12
magnesium oxide 400 mg (241.3 mg magnesium) tablet
400 mg PO BID
ursodiol 300 mg capsule
300 mg PO TID
tacrolimus 1 mg capsule
3 mg PO BID
Rx Instructions:
with 5 mg tab = total 8 mg
insulin lispro 100 unit/mL insulin pen
12 unit SC BID@0730,1630
insulin lispro 100 unit/mL insulin pen
14 unit SC DAILY@1130
insulin glargine [Lantus Solostar U-100 Insulin] 100 unit/mL (3 mL) insulin pen
27 unit SC HS
Discontinued
meloxicam 15 mg tablet
15 mg PO DAILY
gabapentin 100 mg capsule
100 mg PO TID
Discharge Orders:
Discharge Patient (As Directed); Ordered 01/26/24
Ordered By: Tobi Meyer
Discharge Date and Time
Discharge Date/Time: 01/26/24 12:17
Print Language: LAO
== END 2024-01-26 12:17 | disposition home health service (06) | DRG 641 ==
LOC: 3 WEST ACU 18:28
PROVIDERS: Emergency Medicine; Physician Assistant; Physician Assistant Medical; Specialist; ADMITTING PHYSICIAN Hospitalist; CONSULT PHYSICIAN Student in an Organized Health Care Education/Training Program; EMERGENCY PHYSICIAN Emergency Medicine; FAMILY PHYSICIAN Family Medicine
DX: E87.1 Hypo-osmolality and hyponatremia (principal); N17.9 Acute kidney failure, unspecified; Z94.4 Liver transplant status; D84.821 Immunodeficiency due to drugs; E11.42 Type 2 diabetes mellitus with diabetic polyneuropathy; I10 Essential (primary) hypertension; E87.5 Hyperkalemia; E78.00 Pure hypercholesterolemia, unspecified; G47.00 Insomnia, unspecified; K59.00 Constipation, unspecified; T45.1X5A Adverse effect of antineoplastic and immunosuppressive drugs, initial encounter; Z79.621 Long term (current) use of calcineurin inhibitor; Z79.4 Long term (current) use of insulin; Z79.82 Long term (current) use of aspirin; Z79.899 Other long term (current) drug therapy; Z85.05 Personal history of malignant neoplasm of liver; Z87.891 Personal history of nicotine dependence; Z87.898 Personal history of other specified conditions
CPT/HCPCS: 76770; 80048; 80053; 80197; 81003; 81015; 82962; 83036; 83735; 83930; 83935; 84300; 84443; 84484; 85025; 85027; 93005; 97116; 97162; 97166; 99285

== ENCOUNTER 2024-02-05 00:23 | Emergency (ER) | payer OTHER, SELFPAY ==
[2024-02-05 00:28] VITALS: BP 189/96
--- NOTE | 2024-02-05 00:47 | ED.GENMED ---
History of Present Illness
General
Chief Complaint: Musculo-Skeletal Complaint
Source: patient
Exam Limitations: none
Time Seen by Provider: 02/05/24 00:30
Travel History
Have you had any contact with someone who has COVID-19?: No
Do you have any symptoms of coronavirus? Fever > 100 degrees, chills, cough, shortness of breath, sore throat, loss of taste or smell, muscle aches, or headache?: No
History of Present Illness
History of Present Illness:
63-year-old male complaining of severe muscle leg pain. Symptoms started yesterday. Severe in nature. Feels like his nerves and muscles are in continual severe pain. Patient has a history of chronic pain in the right arm. This feels different.
Recent admission for hyponatremia. History of liver transplant August of this year. No fever chest pain shortness of breath or other complaints.
Past History
Past History
ED Past Medical History: CAD, HTN, Hypercholesterolemia, NIDDM (Diet-controlled) and Other (Hyponatremia)
ED Past Surgical History: Other (Liver transplant)
Social History
Tobacco: Non-smoker
Alcohol: Former
Drug: None
Living: with family
Employment: Employed
Family History
Family History: Other (Noncontributory)
Review of Systems
Review of Systems
All Other Systems: Not applicable
Constitutional: Denies fever
Respiratory: Reports no symptoms
Cardiac: Reports no symptoms
ABD/GI: Reports no symptoms
Phy Exam
Physical Exam
Physical Exam:
GENERAL: Alert and oriented. Eyes closed. Hyperventilating.
EYE: Orbits normal.
NECK: Supple, no significant adenopathy.
ENT: Pharynx without erythema
CARDIAC: Regular rate and rhythm without any obvious murmurs.
LUNGS: Clear breath sounds,normal
ABDOMEN: Soft, without focal tenderness or distention
NEUROLOGICAL: Alert and oriented , grossly non-focal
SKIN: Warm and dry, no rash or lesion, no discoloration, skin intact.
MUSCULOSKELETAL: No edema,no deformity.Good color
PSYCH: Normal and appropriate interaction.
Course
Orders/Labs/Results
Orders:
Orders
02/05/24 00:38
Electrocardiogram (*1) Stat
Reason for Study: Other
Other Reason for Exam: chest pain
Cardiac Monitoring- Treatment ONCE
EKG- Treatment ONCE
IV Insert/Care/Rem.- Treatment PRN
02/05/24 00:46
Oxycodone [Roxicodone] 5 mg PO NOW STA
02/05/24 00:49
CPK [Creatine Phosphokinase] Urgent
Complete Blood Count/With Diff Urgent
Comprehensive Metabolic Panel Urgent
PT/INR [Prothrombin Time] Urgent
PTT Urgent
02/05/24 01:01
CXR2 [CR Chest - 2 Views ] Urgent
Comment:
Reason For Exam: recent pneumonia
02/05/24 02:04
Oxycodone [Roxicodone] 5 mg PO NOW STA
02/05/24 03:15
Urinalysis Reflex To Culture Urgent
Date Specimen was Collected: 02/05/24
Time Specimen was Collected: 03:14
02/05/24 03:44
Tramadol HCl [Ultram] 50 mg .ROUTE .STK-MED ONE
02/05/24 03:45
Tramadol HCl [Ultram] 50 mg PO NOW STA
02/05/24 04:46
Gabapentin [Neurontin] 200 mg .ROUTE .STK-MED ONE
02/05/24 04:50
Gabapentin [Neurontin] 200 mg PO NOW STA
Abnormal Lab Results
02/05/24 02/05/24
00:49 03:15
RBC 3.06 L 10^6/uL
(4.70-6.10)
Hgb 10.2 L g/dL
(13.0-18.0)
Hct 27.3 L %
(39.0-52.0)
MCH 33.3 H pg
(27.0-31.0)
MCHC 37.4 H g/dL
(33.0-37.0)
Plt Count 106 L 10^3/uL
(130-400)
Absolute Lymphs (auto) 0.7 L 10^3/uL
(1.2-3.4)
Absolute Monos (auto) 0.7 H 10^3/uL
(0.1-0.6)
Immature Gran % 0.6 H %
(0-0.5)
Neutrophils % 78.0 H %
(42.2-75.2)
Lymphocytes % 9.7 L %
(20.5-51.1)
Monocytes % 10.2 H %
(1.7-9.3)
PT 14.9 H Sec
(11.4-14.6)
Sodium 129 L mmol/L
(135-145)
Chloride 95 L mmol/L
(98-107)
Carbon Dioxide 21 L mmol/L
(22-30)
BUN 26 H mg/dl
(9-20)
Glucose 166 H mg/dl
(70-99)
Urine Glucose Trace A
(Negative)
02/05/24 00:49
02/05/24 00:49
Vital Signs
Initial and Last Documented VS:
Initial Vital Signs
Pulse Resp BP Pulse Ox
106 22 189/96 100
02/05/24 00:28 02/05/24 00:28 02/05/24 00:28 02/05/24 00:28
Last Documented Vital Signs
Temp Pulse Resp BP Pulse Ox
98.7 F 90 18 188/101 99
02/05/24 00:53 02/05/24 05:25 02/05/24 05:25 02/05/24 05:25 02/05/24 05:25
MDM/Problems Addressed
Differential Diagnosis Includes:
Patient complaining of mostly muscle like pain of his arms and legs. Some neuropathy-like pain. No chest pain shortness of breath headache. Patient was admitted here recently with hyponatremia. I called the transplant team at [place] after the
initial evaluation of the patient to gather more information. The patient is correct that they appear to be treating him for pneumonia. Sodium corrected to 131 prior to discharge. Differential for this is wide and includes myopathy, neuropathy,
medication effect. In progress
*Radiology
Radiology exam reviewed: preliminary read by ED provider (Questionable infiltrate right base)
*Pulse Oximetry
Patient hypoxic: no
*EKG
Interpreted by ED Provider?: Yes
Interpretation: abnormal
Comparison EKG: changes noted
Heart Rate: 106
Rate: tachycardiac
Rhythm: sinus
[place]: normal axis
Interval: normal interval
QRS Pattern: normal QRS
Ischemia: no ischemia
*Critical Care Note
Total Time (30-74mins, 75-104mins- exclusive of procedures): Not Applicable
Data Reviewed
Review of Other/Old Records Reveals: Labs, Testing and Discharge Summary
Update Note
Update Note:
0200... Patient with intractable pain difficult to localize. No serious etiology found clinically or by laboratory testing. Very minimal hyponatremia. Warrants admission. Discussed with [facility]. They will accept in transfer. Patient is good with
this.
ED Attending Note
-
Portions of this chart may have been created with voice recognition software.� Occasional wrong word or��sound alike� substitutions may have occurred due to the inherent limitations of voice recognition software.
Discharge Plan
Departure
Patient Disposition: Acute Care Hospital
Date of Disposition: 02/05/24
Time of Disposition: 02:12
Discharge Problem:
Intractable pain, History of liver transplant, Mild hyponatremia, Chronic anemia, Mild chronic thrombocytopenia
Prescriptions:
No Action
aspirin 81 mg Tablet,Delayed Release (Dr/Ec)
81 mg PO DAILY
acetaminophen 500 mg Tablet
1,000 mg PO BID
clotrimazole-betamethasone 1-0.05 % cream
1 applic TOPICAL BIDPRN PRN (Reason: itching bilateral leg wounds)
Rx Instructions:
apply to bilateral leg wounds
carvedilol 25 mg tablet
25 mg PO BID
atorvastatin 20 mg tablet
20 mg PO DAILY
sulfamethoxazole-trimethoprim 400-80 mg tablet
1 tab PO DAILY
tacrolimus 5 mg capsule
5 mg PO BID
Rx Instructions:
with three 1 mg = total 8 mg
melatonin 3 mg Tablet
3 mg PO HS PRN (Reason: insomnia)
tramadol 50 mg tablet
50 mg PO Q12
magnesium oxide 400 mg (241.3 mg magnesium) tablet
400 mg PO BID
ursodiol 300 mg capsule
300 mg PO TID
tacrolimus 1 mg capsule
3 mg PO BID
Rx Instructions:
with 5 mg tab = total 8 mg
insulin lispro 100 unit/mL insulin pen
12 unit SC BID@0730,1630
insulin lispro 100 unit/mL insulin pen
14 unit SC DAILY@1130
insulin glargine [Lantus Solostar U-100 Insulin] 100 unit/mL (3 mL) insulin pen
27 unit SC HS
gabapentin 100 mg Capsule
200 mg PO TID 30 Days Qty: 180 0RF
oxycodone 5 mg tablet
5 mg PO BID PRN (Reason: Mod sev pain) Qty: 10 0RF
Referrals:
Sy Lu DO [Family Provider] -
Hospital Transfer
Other hospital: [facility]
I certify that the patient requires transfer: Yes
Discussed case with accepting physician: Samara
Reason for transfer: higher level of care
Interventions
Interventions:
*Risk Screen - Suicide Last Done: 02/05/24 02:45
*General Assessment Last Done: 02/05/24 02:45
*Neglect/Abuse Screening Last Done: 02/05/24 02:45
ED- Fall Risk Assessment Last Done: 02/05/24 02:44
*ED COVID-19 Vaccine History Last Done: 02/05/24 02:45
*Nursing Disposition Last Done: 02/05/24 05:25
ED-Musculoskeletal Assessment Last Done: 02/05/24 02:43
Discharge Date and Time
Discharge Date/Time: 02/05/24 05:28
Print Language: SCOTTISH
[2024-02-05] MEDS: ROXICODONE 5 MG PO ×2 (00:53→02:18)
[2024-02-05 01:19] LABS: INR 1.18; PT 14.9 Sec (11.4-14.6)
[2024-02-05 01:29] LABS: ALT (SGPT) 16 U/L (0-50); AST (SGOT) 22 U/L (17-59); Albumin 4.6 g/dl (3.5-5.0); Alkaline Phosphatase 51 U/L (38-126); Blood Urea Nitrogen 26 mg/dl (9-20); Calcium 9.7 mg/dl (8.4-10.2); Carbon Dioxide 21 mmol/L (22-30); Chloride 95 mmol/L (98-107); Glucose 166 mg/dl (70-99); Potassium 4.5 mmol/L (3.5-5.1); Sodium 129 mmol/L (135-145); Total Bilirubin 1.3 mg/dl (0.2-1.3); eGFR > 60.00
[2024-02-05 01:36] LABS: % Basophils 0.4 % (0-2); % Eosinophils 1.1 % (0-6); % Immature Granulocytes 0.6 % (0-0.5); % Lymphocytes 9.7 % (20.5-51.1); % Monocytes 10.2 % (1.7-9.3); Absolute Eosinophils 0.1 10^3/uL (0-0.7); Absolute Lymphocytes 0.7 10^3/uL (1.2-3.4); Absolute Monocytes 0.7 10^3/uL (0.1-0.6); Absolute Neutrophils 5.4 10^3/uL (1.4-6.5); Hematocrit 27.3 % (39.0-52.0); Hemoglobin 10.2 g/dL (13.0-18.0); Mean Corp Hgb Conc. 37.4 g/dL (33.0-37.0); Mean Corpuscular Hgb 33.3 pg (27.0-31.0); Mean Corpuscular Volume 89.2 fL (80.0-94.0); Nucleated Red Blood Cells % 0 % (-); Platelet Count 106 10^3/uL (130-400); Red Blood Cell Count 3.06 10^6/uL (4.70-6.10); Red Cell Dist. Width 13.7 % (11.5-14.5)
[2024-02-05 01:48] LABS: Creatine Phosphokinase 64 U/L (55-170)
[2024-02-05 03:13] VITALS: BP 175/98
[2024-02-05 03:34] LABS: Urine Albumin Negative (Neg - Trace); Urine Bilirubin Negative (Negative); Urine Character Clear (Clear); Urine Color Yellow; Urine Glucose Trace (Negative); Urine Ketone Negative (Negative); Urine Leukocyte Negative (Negative); Urine Nitrite Negative (Negative); Urine Occult Blood Negative (Negative); Urine Specific Gravity 1.015 (<1.030); Urine Urobilinogen Negative (Neg - 1+)
[2024-02-05] MEDS: ULTRAM 50 MG PO (03:45)
[2024-02-05] MEDS: NEURONTIN 200 MG PO (04:51)
[2024-02-05 04:53] VITALS: BP 180/99
[2024-02-05 05:25] VITALS: BP 188/101
== END 2024-02-05 05:28 | disposition short-term general hospital (02) ==
LOC: EMR 00:23
PROVIDERS: EMERGENCY PHYSICIAN Emergency Medicine; FAMILY PHYSICIAN Family Medicine
DX: M79.606 Pain in leg, unspecified (principal); E87.1 Hypo-osmolality and hyponatremia; Z94.4 Liver transplant status; D64.9 Anemia, unspecified; D69.6 Thrombocytopenia, unspecified; I25.10 Atherosclerotic heart disease of native coronary artery without angina pectoris; I10 Essential (primary) hypertension; E78.00 Pure hypercholesterolemia, unspecified; E11.9 Type 2 diabetes mellitus without complications; G89.29 Other chronic pain; Z87.01 Personal history of pneumonia (recurrent)
CPT/HCPCS: 99283; 71046; 80053; 81003; 82550; 85025; 85610; 85730; 93005